=== PATIENT | female | born 1960 | race Caucasian/White ===

== ENCOUNTER 2025-06-19 08:19 | Inpatient (IN) | payer OTHER, MEDICARE, SELFPAY ==
--- NOTE | ~2025-06-19 | XR_ITS ---
EXAMINATION: XR CHEST CLINICAL INFORMATION: fall COMPARISON: None available. TECHNIQUE: Frontal view of the chest was obtained. FINDINGS: Pulmonary reticular pattern. No hyperinflation. No consolidation, pleural effusion or pneumothorax. Cardiomediastinal silhouette size is normal. S-shaped curvature of the thoracolumbar spine. Patient's large body habitus/obesity. XR/XR chest 1V IMPRESSION: Consider chronic interstitial lung disease without acute airspace disease. Electronically signed by: Jose Leone MD 06/19/2025 10:21 AM EDT
--- NOTE | ~2025-06-19 | XR_ITS ---
EXAMINATION: XR PELVIS CLINICAL INFORMATION: s/p left hip canelo - done in PACU COMPARISON: June 19, 2025 TECHNIQUE: Portable AP view of the pelvis. FINDINGS: There is a metallic left hip prosthesis well-seated in the osseous acetabulum and proximal femur with normal alignment. Skin johnna in the soft tissues of the left hip. Mild degenerative changes in the right coxofemoral joint and symphysis pubis. Sclerosis and the sacroiliac joints bilaterally. 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 XR/XR pelvis 1-2V IMPRESSION: Status post total left hip arthroplasty prosthesis. Satisfactory. Electronically signed by: Jose Leone MD 06/20/2025 09:25 AM EDT
--- NOTE | ~2025-06-19 | XR_ITS ---
EXAMINATION: XR HIP, LEFT CLINICAL INFORMATION: fall COMPARISON: None available. TECHNIQUE: AP and cross lateral view of the left hip. FINDINGS: There is transverse oriented cortical disruption through the femoral neck resulting in foreshortening and slight upward position of the intertrochanteric region of the femur. The femoral head is well seated in the acetabulum. Sclerosis and vacuum phenomenon at the left sacroiliac joint. XR/XR hip LT w PEL1V IMPRESSION: Acute displaced fracture, left femoral neck. Electronically signed by: Jose Leone MD 06/19/2025 10:22 AM EDT
[2025-06-19 08:28] VITALS: BP 174/103; BP 184/99; PULSE 103; PULSE 80; RESP 20; TEMP 36.6; O2SAT 100; O2SAT 96; BMI 27.4
[2025-06-19 08:30] LABS: Glucose, Whole Blood 455 mg/dL (60-115)
--- NOTE | 2025-06-19 08:42 | ECG_ITS ---
Test Reason : fall Blood Pressure : */* mmHG Vent. Rate : 95 BPM Atrial Rate : 95 BPM P-R Int : 162 ms QRS Dur : 80 ms QT Int : 352 ms P-R-T Axes : 52 -2 54 degrees QTcB Int : 442 ms Normal sinus rhythm Cannot rule out Inferior infarct , age undetermined Abnormal ECG When compared with ECG of 18-Nov-2006 11:50, No significant changes seen Referred By: Lois Stover Electronically Signed By: DAVEY QUACH MD
[2025-06-19 09:07] LABS: MANUAL DIFF FLAG NO
[2025-06-19 09:08] LABS: Hematocrit 40.0 % (37.0-47.0); Hemoglobin 14.1 g/dl (12.0-16.0); Imm Gran Abs Auto 0.05 X10*3/uL (0.00-0.03); Imm Gran Pct Auto 0.5 % (0.0-0.4); Lymphocytes Absolute Auto 0.6 X10*3/uL (1.2-4.9); Mean Corpuscular HGB Conc 35.3 g/dl (31.0-35.0); Mean Corpuscular Hemoglobin 29.0 pg (27.0-33.0); Mean Corpuscular Volume 82.1 fL (80.0-98.0); NRBC Abs Auto 0.000 X10*3/uL (0.0-0.012); NRBC Pct Auto 0.0 /100WBC (0.0-0.2); Platelet Count 254 X10*3/uL (160-400); Red Blood Count 4.87 X10*6/uL (4.20-5.50); White Blood Count 9.7 X10*3/uL (4.8-10.8)
[2025-06-19 09:13] LABS: INTERNATIONAL NORM RATIO 0.8 (0.9-1.1); Prothrombin Time 9.7 SEC (10.9-12.4)
[2025-06-19 09:26] LABS: Alanine Aminotransferase 21 U/L (0-31); Albumin Level 4.2 g/dL (3.5-5.0); Alkaline Phosphatase 182 U/L (39-117); Anion Gap 16 (12-20); Aspartate Amino Transferase 23 U/L (5-31); Blood Urea Nitrogen 17 mg/dL (9-16); Calcium 8.7 mg/dL (8.4-10.2); Carbon Dioxide 21 mmol/L (22-29); Chloride 102 mmol/L (96-108); Creatinine Clr Calc Pharmacy 72.4; Estimated Glomerular Filt Rate > 60; Lipase 42 U/L (8-78); Potassium 3.6 mmol/L (3.3-5.1); Sodium 135 mmol/L (135-145); Total Protein 7.4 g/dL (6.5-8.0)
--- NOTE | 2025-06-19 09:26 | ED.FALL ---
HPI - Fall General Chief Complaint: Fall Stated Complaint: L HIP PAIN,FALL,UNABLE TO BEAR WT, HIGH BS Time Seen by Provider: 06/19/25 08:33 Source: patient and EMS Mode of arrival: EMS Limitations: no limitations History of Present Illness ED Provider: DR. Stover HPI Narrative: 65-year-old female history of type 2 diabetes on metformin presented by EMS for evaluation after a mechanical fall. Patient was doing a morning walk in the street when she tripped on the broken pavement causing her to fall patient try to ease her fall landed on her left hip complaining of left hip pain, patient is unable to bear weight on her left hip, no head injury, no pain, patient declined using anticoagulation. Related Data Allergies Allergy/AdvReac Type Severity Reaction Status Date / Time amoxicillin Allergy Hives Verified 06/19/25 08:32 Review of Systems Review of Systems: All other systems are reviewed and are negative Constitutional: Reports as per HPI and Reports no additional constitutional complaints Eyes: Reports as per HPI and Reports no additional eye complaints Reports system reviewed and no additional complaints, except as documented Cardiovascular: Reports as per HPI and Reports no additional cardiovascular complaints Respiratory: Reports as per HPI and Reports no additional respiratory complaints Gastrointestinal: Reports as per HPI and Reports no additional gastrointestinal complaints Genitourinary: Reports no additional female genitourinary complaints Musculoskeletal: Reports no additional musculoskeletal complaints Skin/Breast: Reports system reviewed and no additional complaints, except as docu Psychiatric: Reports no additional psychiatric complaints Endocrine: Reports no additional endocrine complaints Hematologic/Lymphatic: Reports no additional hematologic/lymphatic complaints Allergic/Immunologic: Reports no additional allergic/immunologic complaints Reports system reviewed and no additional complaints, except as documented and Reports Abnormal speech present [facility] Social History Social History Advance Directives: No Advance Directives Information Provided: Yes Physical Exam Vital Signs: Vital Signs: Last Vital Signs Temp 97.9 F 06/19/25 08:28 Pulse 103 H 06/19/25 08:28 Resp 20 06/19/25 08:28 BP 174/103 H 06/19/25 08:28 Pulse Ox 100 06/19/25 08:28 O2 Del Method Room Air 06/19/25 08:28 BMI result Body Mass Index 27.4 Vital signs have been reviewed and appear to be correct. Blood pressure elevated. Heart rate normal. Respiratory rate normal. Temperature normal. Oxygen saturation normal. Appearance: Alert. Oriented X3. No acute distress. Head: Normal external exam. Normocephalic. Atraumatic. No Quach signs noted. No raccoon eyes noted Eyes: PERRLA. EOMI. Conjunctiva and sclera normal. Eyelids normal. ENT: TM's Normal. Pharynx normal. Uvula midline. Moist mucous membranes. No trismus noted. No drooling noted. No muffled voice noted. Neck: Normal inspection. Neck supple. FROM. No adenopathy. Thyroid Normal. No meningeal signs. No neck mass noted. CVS: Normal heart rate and rhythm. Heart sound normal. No murmurs noted. Pulses normal throughout. Respiratory: No respiratory distress. Painless inspiration. Breath sounds normal. No wheezes/rales/rhonchi noted. Chest nontender. No accessory muscle usage noted or decreased air movement noted. Abdomen: Soft and nontender. Bowel sounds normal in all 4 quadrants. No distention noted. No organomegaly noted. No visible injury noted. Back: No CVA tenderness. Full range of motion noted. Skin: Skin warm and dry. Normal skin color. Normal skin turgor. No rashes/lesions/lacerations noted. Extremities: Left hip: Tenderness over left hip with deformity, left lower extremity with shortening and external rotation, a strong left femoral artery pulsation with a good cap refill. Neuro: Oriented X 3. Cranial nerve exam: II-XII are grossly intact No motor deficit. No sensory deficit. Reflexes normal. Course Reevaluation(s) Reevaluation #1: 65-year-old female history of type 2 diabetes came in after sustained a mechanical fall causing her left hip fracture. Patient also sustained hyperglycemia with no DKA. 1. Left femur neck fracture, continue with pain control, consult Orthopedic. 2. Hyperglycemia with no DKA slight elevation of beta hydroxybutyric acid, improvement with IV fluids and IV insulin. Admission. Medications Administered Discontinued Medications Generic Name Dose Route Start Last Admin Trade Name Freq PRN Reason Stop Dose Admin Hydromorphone HCl 1 mg 06/19/25 09:27 06/19/25 09:53 Hydromorphone Hcl 1 Mg/Ml Syringe IVPUSH 06/19/25 09:28 1 mg ONCE ONE Administration Protocol Sodium Chloride 1,000 mls @ 999 mls/hr 06/19/25 08:42 06/19/25 09:07 Ns IV 06/19/25 09:42 999 mls/hr .Q1H1M ONE Administration Insulin Human Regular 5 unit 06/19/25 08:42 06/19/25 09:03 Insulin Regular, Human 100 Unit/Ml 10 Ml Vial IVPUSH 06/19/25 08:43 5 unit ONCE ONE Administration Medical Decision Making Differential Diagnosis Differential Diagnoses: The differential diagnosis associated with the presentation includes (DKA, hyperglycemia, electrolyte derangement, severe anemia, head injury, cervical spine injury, chest injury, abdominal injury, left hip fracture.) Admission/Observation Consideration of admission/observation: Escalation of care including admission/observation considered Consult Healthcare Provider Management of the patient was discussed with: Patient Transport Orderly (Marisa Young) Lab Data MDM Lab Attestation statement: I reviewed the patient's lab results. 06/19/25 09:02 06/19/25 09:02 Labs: Lab Results 06/19/25 06/19/25 06/19/25 Range/Units 08:27 09:02 09:57 WBC 9.7 (4.8-10.8) X10*3/uL RBC 4.87 (4.20-5.50) X10*6/uL Hgb 14.1 (12.0-16.0) g/dl Hct 40.0 (37.0-47.0) % MCV 82.1 (80.0-98.0) fL MCH 29.0 (27.0-33.0) pg MCHC 35.3 H (31.0-35.0) g/dl RDW 12.0 (11.0-16.0) % Plt Count 254 (160-400) X10*3/uL MPV 9.1 L (9.4-12.3) fL Immature Gran % (Auto) 0.5 H (0.0-0.4) % Neut % (Auto) 89.1 H (45-73) % Lymph % (Auto) 5.8 L (20-40) % [place] % (Auto) 4.2 (2-11) % Eos % (Auto) 0.1 (0-4) % Baso % (Auto) 0.3 (0-2) % Lymph # (Auto) 0.6 L (1.2-4.9) X10*3/uL [place] # (Auto) 0.4 (0.1-1.2) X10*3/uL Eos # (Auto) 0.0 (0.0-0.4) X10*3/uL Baso # (Auto) 0.0 (0.0-0.2) X10*3/uL Abs Immat Gran (auto) 0.05 H (0.00-0.03) X10*3/uL Absolute Neuts (auto) 8.6 H (2.0-8.3) x10*3/uL Absolute Nucleated RBC 0.000 (0.0-0.012) X10*3/uL Nucleated RBC % (auto) 0.0 (0.0-0.2) /100WBC PT 9.7 L (10.9-12.4) SEC INR 0.8 L (0.9-1.1) Sodium 135 (135-145) mmol/L Potassium 3.6 (3.3-5.1) mmol/L Chloride 102 (96-108) mmol/L Carbon Dioxide 21 L (22-29) mmol/L Anion Gap 16 (12-20) BUN 17 H (9-16) mg/dL Creatinine 0.79 (0.5-1.4) mg/dL Estim Creat Clear Calc 72.4 Estimated GFR > 60 POC Glucose 455 H* (60-115) mg/dL Random Glucose 460 H* (60-115) mg/dL Calcium 8.7 (8.4-10.2) mg/dL Total Bilirubin 0.7 (0.0-1.0) mg/dL Direct Bilirubin 0.2 (0.0-0.5) mg/dL AST 23 (5-31) U/L ALT 21 (0-31) U/L Alkaline Phosphatase 182 H (39-117) U/L Troponin I High Sens < 2.7 (<3.5-17.0) ng/L B-Natriuretic Peptide < 10 (<100) pg/mL Total Protein 7.4 (6.5-8.0) g/dL Albumin 4.2 (3.5-5.0) g/dL Lipase 42 (8-78) U/L Beta-Hydroxybutyrate 1.22 H (0.02-0.27) mmol/L Urine Color Yellow Urine Appearance Clear Urine pH 8.0 (5.0-9.0) Ur Specific [place] >= 1.030 H (1.005-1.025) Urine Protein Trace (Neg-Trace) mg/dL Urine Glucose (UA) >=1000 H (Negative) mg/dL Urine Ketones 40 (Negative) mg/dL Urine Blood Negative (Negative) Urine Nitrite Negative (Negative) Ur Leukocyte Esterase Negative (Negative) Urine RBC 0-2 (0-2) /HPF Urine WBC 0-5 (0-5) /HPF Ur Squamous Epith Cells 0-2 (0-2) /HPF Urine Bacteria None Seen (None Seen) Hyaline Casts 0-2 (0-2) /LPF Influenza Type A (PCR) NEGATIVE (Negative) Influenza Type B (PCR) NEGATIVE (Negative) RSV RNA Qual (PCR) NEGATIVE (Negative) SARS-CoV-2 RNA (RT-PCR) NEGATIVE (Negative) Blood Type Antibody Screen 06/19/25 06/19/25 Range/Units 10:21 11:00 WBC (4.8-10.8) X10*3/uL RBC (4.20-5.50) X10*6/uL Hgb (12.0-16.0) g/dl Hct (37.0-47.0) % MCV (80.0-98.0) fL MCH (27.0-33.0) pg MCHC (31.0-35.0) g/dl RDW (11.0-16.0) % Plt Count (160-400) X10*3/uL MPV (9.4-12.3) fL Immature Gran % (Auto) (0.0-0.4) % Neut % (Auto) (45-73) % Lymph % (Auto) (20-40) % [place] % (Auto) (2-11) % Eos % (Auto) (0-4) % Baso % (Auto) (0-2) % Lymph # (Auto) (1.2-4.9) X10*3/uL [place] # (Auto) (0.1-1.2) X10*3/uL Eos # (Auto) (0.0-0.4) X10*3/uL Baso # (Auto) (0.0-0.2) X10*3/uL Abs Immat Gran (auto) (0.00-0.03) X10*3/uL Absolute Neuts (auto) (2.0-8.3) x10*3/uL Absolute Nucleated RBC (0.0-0.012) X10*3/uL Nucleated RBC % (auto) (0.0-0.2) /100WBC PT (10.9-12.4) SEC INR (0.9-1.1) Sodium (135-145) mmol/L Potassium (3.3-5.1) mmol/L Chloride (96-108) mmol/L Carbon Dioxide (22-29) mmol/L Anion Gap (12-20) BUN (9-16) mg/dL Creatinine (0.5-1.4) mg/dL Estim Creat Clear Calc Estimated GFR POC Glucose 304 H (60-115) mg/dL Random Glucose (60-115) mg/dL Calcium (8.4-10.2) mg/dL Total Bilirubin (0.0-1.0) mg/dL Direct Bilirubin (0.0-0.5) mg/dL AST (5-31) U/L ALT (0-31) U/L Alkaline Phosphatase (39-117) U/L Troponin I High Sens (<3.5-17.0) ng/L B-Natriuretic Peptide (<100) pg/mL Total Protein (6.5-8.0) g/dL Albumin (3.5-5.0) g/dL Lipase (8-78) U/L Beta-Hydroxybutyrate (0.02-0.27) mmol/L Urine Color Urine Appearance Urine pH (5.0-9.0) Ur Specific [place] (1.005-1.025) Urine Protein (Neg-Trace) mg/dL Urine Glucose (UA) (Negative) mg/dL Urine Ketones (Negative) mg/dL Urine Blood (Negative) Urine Nitrite (Negative) Ur Leukocyte Esterase (Negative) Urine RBC (0-2) /HPF Urine WBC (0-5) /HPF Ur Squamous Epith Cells (0-2) /HPF Urine Bacteria (None Seen) Hyaline Casts (0-2) /LPF Influenza Type A (PCR) (Negative) Influenza Type B (PCR) (Negative) RSV RNA Qual (PCR) (Negative) SARS-CoV-2 RNA (RT-PCR) (Negative) Blood Type O Positive Antibody Screen NEGATIVE Independent Interpretation I performed an independent interpretation of an: Plain X-Ray (Chest: Pelvis: Left hip:Consider chronic interstitial lung disease without acute airspace disease/Acute displaced fracture, left femoral neck.) Radiology Impression Discussion of test interpretation with radiology: I have reviewed the radiologist's reading. Critical Care Time Critical Care Time Critical Care Time: Yes Total Critical Care Time: 40 Attestation: The patient was critically ill with a high probability of imminent or life-threatening deterioration. I spent greater than 30 minutes of discontinuous time evaluating the patient, delivering critical care at the bedside, discussing evaluating data with consultants. Critical care time does not include time spent performing separately billable procedures or teaching. Time spent performing critical care was 40 minutes. Discharge Plan Discharge Clinical Impression: Acute hyperglycemia, Closed fracture of left hip Patient Disposition: Admitted As Inpatient Print Language: [place]
[2025-06-19 09:30] LABS: B Type Natriuretic Peptide < 10 pg/mL (<100)
[2025-06-19 09:35] LABS: Troponin-I High Sensitivity < 2.7 ng/L (<3.5-17.0)
--- NOTE | 2025-06-19 09:44 | PC.NURSE ---
Leann Kim NP stated she can go to Nuc med without fluids and telemetry.
[2025-06-19 09:45] LABS: Resp Syncy Virus RNA Qual PCR NEGATIVE (Negative); SARS COV2 PCR INHOUSE NEGATIVE (Negative)
[2025-06-19 10:06] LABS: Appearance Urine Clear; Glucose Urine UA >=1000 mg/dL (Negative); PH 8.0 (5.0-9.0); Specific Gravity - Urine >= 1.030 (1.005-1.025); UMIC TRIGGER UACC YES
[2025-06-19 11:03] LABS: Glucose, Whole Blood 304 mg/dL (60-115)
--- NOTE | 2025-06-19 11:36 | PC.NURSE ---
Pt requesting to hold pain medication and metformin dose until nausea passes. Zofran administered, care ongoing.
[2025-06-19 11:47] VITALS: BP 128/69; PULSE 93; RESP 16; O2SAT 98
[2025-06-19 11:55] LABS: Glucose, Whole Blood 342 mg/dL (60-115)
[2025-06-19 12:00] VITALS: BP 128/69; PULSE 84; RESP 15; O2SAT 87
[2025-06-19 12:06] VITALS: O2SAT 100
--- NOTE | 2025-06-19 12:07 | PM.IMHP ---
History of Present Illness Date of Service: 06/19/25 Attending physician on admission: Denis Alva Chief Complaint: Left hip pain Winnie Bustamante is a 65 years old woman with significant past medical history significant for diabetes mellitus on diet presents to the emergency department after sustaining a mechanical fall this morning. She was able to stand up and walk. She denied any symptoms such as chest pain, shortness on breath, cough, abdominal pain or diarrhea. She because quite nauseous after receiving IV opiates. She has not history of heart heart or kidney disease, or strokes. She does not take blood thinners. She denied tobacco smoking, alcohol abuse illicit drug use. In the ED, she was found to have stable vital signs. She placed on supplemental oxygen after receiving IV opiates. Blood workup showed no leukocytosis. Hemoglobin is 14.1 and platelets 254. There are no significant electrolyte imbalances. CO2 is 21, BUN 17 and creatinine 0.79. Glucose was initially 455, last was 342. LFTs and lipase are basically unremarkable. Alk-phos is 182. BNP is less than 10. Beta hydroxybutyrate is 1.22. UA showed no evidence of UTI. Viral testing for COVID-19, influenza and RSV. Hip and pelvic x-ray showed acute displaced fracture of the left femoral neck. CXR showed chronic interstitial lung disease without acute airspace disease. ECG showed normal sinus rhythm, HR 95 bpm without obvious acute ischemic changes when compared with prior. ED tx: Zofran 4 mg IV, NS 1 L bolus, insulin R 5 units, Dilaudid 1 mg IV Review of Systems Review of Systems: All 12 systems were reviewed and normal except as noted in HPI. [facility] Medical History (Updated 06/19/25 @ 12:48 by Denis Alva MD) Type 2 diabetes mellitus Social History Smoked in Last 30 Days: No Advance Directives: No Advance Directives Information Provided: Yes Meds Allergies Allergy/AdvReac Type Severity Reaction Status Date / Time amoxicillin Allergy Hives Verified 06/19/25 08:32 Active Medications: Current Medications Calcium Carbonate (Calcium Carbonate 750 Mg Tab.Chew) 750 mg PO Q4H PRN PRN Reason: Heartburn Dextrose (Dextrose 50 % 25 Gm/50 Ml Syringe) 25 gm IVPUSH Q15M PRN; Protocol PRN Reason: per Hypoglycemia Standing Ord. Enoxaparin Sodium (Enoxaparin Sodium 40 Mg/0.4 Ml Syringe) 40 mg SUBCUT Q24H [facility] Glucose (Glucose Gel 15 Gm Gel..Gram.) 15 gm PO Q15M PRN; Protocol PRN Reason: per Hypoglycemia Standing Ord. Lactated Ringer's (Lr) 1,000 mls @ 125 mls/hr IVCONT .Q8H [facility] Stop: 06/19/25 19:59 Insulin Human Lispro (Insulin Lispro 100 Unit/Ml 3 Ml Vial) 0 unit SUBCUT Q6H PRN; Protocol PRN Reason: hyperglycemia Magnesium Hydroxide (Milk Of Magnesia 30 Ml Oral.Susp) 30 ml PO DAILY PRN PRN Reason: Constipation Melatonin (Melatonin 3 Mg Tablet) 6 mg PO BEDTIME PRN PRN Reason: Insomnia Ondansetron HCl (Ondansetron Hcl 4 Mg/2 Ml Vial) 4 mg IVPUSH Q6H PRN PRN Reason: Nausea and Vomiting Sodium Chloride (0.9 % Sodium Chloride Flush 3 Ml Syringe) 3 ml IVFLUSH QSHIFT [facility] Home Medications ?Medication ?Instructions ?Recorded ?Confirmed ?Last Taken ?Type No Known Home Meds 06/19/25 06/19/25 Unknown History Physical Exam Vital Signs and Narrative: Vital Signs: Last Vital Signs Temp 97.9 F 06/19/25 08:28 Pulse 84 06/19/25 12:00 Resp 15 06/19/25 12:00 BP 128/69 06/19/25 12:00 Pulse Ox 100 06/19/25 12:06 O2 Del Method Nasal Cannula 06/19/25 12:06 O2 Flow Rate 4 06/19/25 12:06 BMI result Body Mass Index 27.4 Constitutional - Awake and Alert. Looks uncomfortable due to pain. HEENT - PERRLA, EOMI Heart - S1S2, RRR, No edema Lungs- Normal lung expansion, Normal respiratory effort, No respiratory distress, CTA bilaterally Abdomen - NT / ND; +BS; No rebound or guarding Extremities - no calf tenderness bilaterally, no swelling. Left hip: Tenderness to palpation, limited ROM. Distal pulses 2+ bilaterally Musculoskeletal - Normal inspection, normal ROM Skin - Warm/Dry Neurological - Alert & oriented x3. No focal weakness grossly noted. Normal speech. Psychological - Appropriate affect Results Labs 06/19/25 09:02 06/19/25 09:02 Labs: Laboratory Results - last 24 hr 06/19/25 06/19/25 06/19/25 08:27 09:02 09:57 MCV 82.1 MCH 29.0 MCHC 35.3 H RDW 12.0 Plt Count 254 MPV 9.1 L Immature Gran % (Auto) 0.5 H Neut % (Auto) 89.1 H Lymph % (Auto) 5.8 L [place] % (Auto) 4.2 Eos % (Auto) 0.1 Baso % (Auto) 0.3 Lymph # (Auto) 0.6 L [place] # (Auto) 0.4 Eos # (Auto) 0.0 Baso # (Auto) 0.0 Abs Immat Gran (auto) 0.05 H Absolute Neuts (auto) 8.6 H Absolute Nucleated RBC 0.000 Nucleated RBC % (auto) 0.0 PT 9.7 L INR 0.8 L Anion Gap 16 Estim Creat Clear Calc 72.4 Estimated GFR > 60 POC Glucose 455 H* Random Glucose 460 H* Calcium 8.7 Total Bilirubin 0.7 Direct Bilirubin 0.2 AST 23 ALT 21 Alkaline Phosphatase 182 H B-Natriuretic Peptide < 10 Total Protein 7.4 Albumin 4.2 Lipase 42 Beta-Hydroxybutyrate 1.22 H Urine Color Yellow Urine Appearance Clear Urine pH 8.0 Ur Specific [place] >= 1.030 H Urine Protein Trace Urine Glucose (UA) >=1000 H Urine Ketones 40 Urine Blood Negative Urine Nitrite Negative Ur Leukocyte Esterase Negative Urine RBC 0-2 Urine WBC 0-5 Ur Squamous Epith Cells 0-2 Urine Bacteria None Seen Hyaline Casts 0-2 Influenza Type A (PCR) NEGATIVE Influenza Type B (PCR) NEGATIVE RSV RNA Qual (PCR) NEGATIVE SARS-CoV-2 RNA (RT-PCR) NEGATIVE Blood Type Antibody Screen 06/19/25 06/19/25 06/19/25 10:21 11:00 11:51 MCV MCH MCHC RDW Plt Count MPV Immature Gran % (Auto) Neut % (Auto) Lymph % (Auto) [place] % (Auto) Eos % (Auto) Baso % (Auto) Lymph # (Auto) [place] # (Auto) Eos # (Auto) Baso # (Auto) Abs Immat Gran (auto) Absolute Neuts (auto) Absolute Nucleated RBC Nucleated RBC % (auto) PT INR Anion Gap Estim Creat Clear Calc Estimated GFR POC Glucose 304 H 342 H Random Glucose Calcium Total Bilirubin Direct Bilirubin AST ALT Alkaline Phosphatase B-Natriuretic Peptide Total Protein Albumin Lipase Beta-Hydroxybutyrate Urine Color Urine Appearance Urine pH Ur Specific [place] Urine Protein Urine Glucose (UA) Urine Ketones Urine Blood Urine Nitrite Ur Leukocyte Esterase Urine RBC Urine WBC Ur Squamous Epith Cells Urine Bacteria Hyaline Casts Influenza Type A (PCR) Influenza Type B (PCR) RSV RNA Qual (PCR) SARS-CoV-2 RNA (RT-PCR) Blood Type O Positive Antibody Screen NEGATIVE Imaging Radiologist's Impressions: Impressions Hip/Pelvis X-Ray 06/19/25 09:06 IMPRESSION: Acute displaced fracture, left femoral neck. Electronically signed by: Jose Leone MD 06/19/2025 10:22 AM EDT RP Chest X-Ray 06/19/25 09:14 IMPRESSION: Consider chronic interstitial lung disease without acute airspace disease. Electronically signed by: Jose Leone MD 06/19/2025 10:21 AM EDT RP Assessment and Plan (1) Closed fracture of left hip: Qualifiers: Encounter type: initial encounter Qualified Code(s): S72.002A - Fracture of unspecified part of neck of left femur, initial encounter for closed fracture Status: Acute (2) Acute hyperglycemia: Status: Acute Plan Winnie Bustamante is a 65 y/o woman presents with: Left femoral neck fracture, closed. Treatment per Orthopedic surgery Service. CXR and EKG unremarkable. RCRI is O. overall preoperative risk is low. Type 2 diabetes mellitus with hyperglycemia. Metformin given by ED. BG checks. Diabetic diet. Insulin sliding scale. Hypoxia secondary to opiate. Continue supplemental O2. Code status: Full DVT prophylaxis: Lovenox Patient will need hospitalization for at least 2 midnights for left femoral neck fracture repair surgery. Quality Stroke Does the patient have a stroke diagnosis?: No VTE Prior VTE?: No VTE Risk Level:: Medical - moderate - high VTE Device Contraindication: Treatment Not Indicated VTE Drug Contraindication: N/A - Med Ordered
--- NOTE | 2025-06-19 12:47 | PHA.MEDREC ---
Addendum entered by Woody Gregg PharmD 06/19/25 13:09: reviewed Original Note: Pharmacy Consult ? Medication Reconciliation Pharmacy has completed the medication reconciliation. Patient states she is not on any medications.
[2025-06-19] MEDS: Lactated Ringers 1,000 ML 125 ML IVCONT (12:56)
[2025-06-19 13:20] LABS: Glucose, Whole Blood 356 mg/dL (60-115)
--- NOTE | 2025-06-19 14:01 | P.CONOP_ITS ---
History of Present Illness HPI Consult date: 06/19/25 Chief complaint: Left femur neck fracture Narrative: Ms. Bustamante is a 65 yo female with a PMH significant for DMII. She reports that she was walking and there was broken asphalt. She tripped over and fell landing on her left hip. She felt immediate pain and was unable to ambulate. She presented to the emergency department where x-rays were obtained and she was found to have a left hip femoral neck fracture. Her son is at bedside and reports that she has family to support her but she lives on a second floor apartment. She does not use any assistive devices to ambulate. She was admitted to the medicine service with orthopedic consult. Review of Systems 2 Review of Systems: Yes all other systems are reviewed and are negative [facility] Past Medical History Medical History (Updated 06/19/25 @ 12:48 by Denis Alva MD) Type 2 diabetes mellitus Social History Social History Smoked in Last 30 Days: No Advance Directives: No Advance Directives Information Provided: Yes Meds Allergies Allergy/AdvReac Type Severity Reaction Status Date / Time amoxicillin Allergy Hives Verified 06/19/25 08:32 Active Medications: Current Medications Calcium Carbonate (Calcium Carbonate 750 Mg Tab.Chew) 750 mg PO Q4H PRN PRN Reason: Heartburn Dextrose (Dextrose 50 % 25 Gm/50 Ml Syringe) 25 gm IVPUSH Q15M PRN; Protocol PRN Reason: per Hypoglycemia Standing Ord. Enoxaparin Sodium (Enoxaparin Sodium 40 Mg/0.4 Ml Syringe) 40 mg SUBCUT Q24H TIN Glucose (Glucose Gel 15 Gm Gel..Gram.) 15 gm PO Q15M PRN; Protocol PRN Reason: per Hypoglycemia Standing Ord. Lactated Ringer's (Lr) 1,000 mls @ 125 mls/hr IVCONT .Q8H TIN Stop: 06/19/25 19:59 Last Admin: 06/19/25 12:56 Dose: 125 mls/hr Acetaminophen (Ofirmev) 1,000 mg in 100 mls @ 400 mls/hr IV Q6H TIN Insulin Human Lispro (Insulin Lispro 100 Unit/Ml 3 Ml Vial) 0 unit SUBCUT Q6H PRN; Protocol PRN Reason: hyperglycemia Magnesium Hydroxide (Milk Of Magnesia 30 Ml Oral.Susp) 30 ml PO DAILY PRN PRN Reason: Constipation Melatonin (Melatonin 3 Mg Tablet) 6 mg PO BEDTIME PRN PRN Reason: Insomnia Ondansetron HCl (Ondansetron Hcl 4 Mg/2 Ml Vial) 4 mg IVPUSH Q6H PRN PRN Reason: Nausea and Vomiting Prochlorperazine Edisylate (Prochlorperazine Edisylate 10 Mg/2 Ml Vial) 5 mg IVPUSH Q6H PRN PRN Reason: Nausea and Vomiting Last Admin: 06/19/25 12:56 Dose: 5 mg Sodium Chloride (0.9 % Sodium Chloride Flush 3 Ml Syringe) 3 ml IVFLUSH [facility] Home Medications ?Medication ?Instructions ?Recorded ?Confirmed ?Last Taken ?Type No Known Home Meds 06/19/25 06/19/25 Un known History Physical Exam 2 Vital Signs: Vital Signs: Last Vital Signs Temp 97.9 F 06/19/25 08:28 Pulse 84 06/19/25 12:00 Resp 15 06/19/25 12:00 BP 128/69 06/19/25 12:00 Pulse Ox 100 06/19/25 12:06 O2 Del Method Nasal Cannula 06/19/25 12:06 O2 Flow Rate 4 06/19/25 12:06 BMI result Body Mass Index 27.4 Const: General: cooperative, healthy appearing and no acute distress Resp: Effort & Inspection: normal respiratory effort and able to speak in complete sentences Cardio: Rate: regular rate Peripheral pulses: Peripheral pulses 2+ throughout GI: Palpation (GI): Soft to palpation Skin: Lesions: no lesions Rashes: no rashes Extrem: Other: LLE is shortened. No external rotation noted. Able to dorsi/plantar flex. Sensation reportedly intact. Pedal pulse intact. Results Labs 06/19/25 09:02 06/19/25 09:02 Labs: Abnormal lab results 06/19/25 06/19/25 06/19/25 Range/Units 08:27 09:02 09:57 MCHC 35.3 H (31.0-35.0) g/dl MPV 9.1 L (9.4-12.3) fL Immature Gran % (Auto) 0.5 H (0.0-0.4) % Neut % (Auto) 89.1 H (45-73) % Lymph % (Auto) 5.8 L (20-40) % Lymph # (Auto) 0.6 L (1.2-4.9) X10*3/uL Abs Immat Gran (auto) 0.05 H (0.00-0.03) X10*3/uL Absolute Neuts (auto) 8.6 H (2.0-8.3) x10*3/uL PT 9.7 L (10.9-12.4) SEC INR 0.8 L (0.9-1.1) Carbon Dioxide 21 L (22-29) mmol/L BUN 17 H (9-16) mg/dL POC Glucose 455 H* (60-115) mg/dL Random Glucose 460 H* (60-115) mg/dL Alkaline Phosphatase 182 H (39-117) U/L Beta-Hydroxybutyrate 1.22 H (0.02-0.27) mmol/L Ur Specific [place] >= 1.030 H (1.005-1.025) Urine Glucose (UA) >=1000 H (Negative) mg/dL 06/19/25 06/19/25 06/19/25 Range/Units 11:00 11:51 13:16 MCHC (31.0-35.0) g/dl MPV (9.4-12.3) fL Immature Gran % (Auto) (0.0-0.4) % Neut % (Auto) (45-73) % Lymph % (Auto) (20-40) % Lymph # (Auto) (1.2-4.9) X10*3/uL Abs Immat Gran (auto) (0.00-0.03) X10*3/uL Absolute Neuts (auto) (2.0-8.3) x10*3/uL PT (10.9-12.4) SEC INR (0.9-1.1) Carbon Dioxide (22-29) mmol/L BUN (9-16) mg/dL POC Glucose 304 H 342 H 356 H* (60-115) mg/dL Random Glucose (60-115) mg/dL Alkaline Phosphatase (39-117) U/L Beta-Hydroxybutyrate (0.02-0.27) mmol/L Ur Specific [place] (1.005-1.025) Urine Glucose (UA) (Negative) mg/dL H & H 06/19/25 Range/Units 09:02 Hgb 14.1 (12.0-16.0) g/dl Hct 40.0 (37.0-47.0) % Coagulation 06/19/25 Range/Units 09:02 INR 0.8 L (0.9-1.1) All other labs normal. Assessment and Plan (1) Closed fracture of left hip: Qualifiers: Encounter type: initial encounter Qualified Code(s): S72.002A - Fracture of unspecified part of neck of left femur, initial encounter for closed fracture Status: Acute I discussed the case with Dr. Tyler and explained the extent of the injury to the patient and options available which include surgical intervention. I explained the procedure in detail along with the length of recovery and rehab course. I explained the risk, benefits and alternatives. Risk including, but not limited to infection, blood clots, bleeding, non union or malunion and nerve/tissue damage to surrounding areas. I answered all their questions and with their understanding they have consented to move forward with Operative Fixation of the left hip. The patient will be T&S, med clearance obtained and NPO after midnight. Procedures Date of Service Date of Service: 06/19/25
--- NOTE | 2025-06-19 14:26 | P.CONAN_ITS ---
Documented by User: Sindhu Qiu NP 06/19/25 15:06 HPI - Anesthesia Eval Consult details Narrative: 65 yr old female for Hemiarthroplasty Left hip No CP/SOB with moderate activity, usually 30 min walk daily No recent illness Type 2 DM: BG on arrival 400s; not on medication PCP was at [place], but not seen since 2020 per review of chart No H/O LIZ however O2 sats dipping into 80s while dosing off, placed on 3L O2 with sats high 90s Post op N/V after surgery 40 years ago) [facility] Active Problems Active Problems: All Active Problems Closed fracture of left hip (Acute) Acute hyperglycemia (Acute) Past Medical History Medical History (Updated 06/19/25 @ 12:48 by Denis Alva MD) Type 2 diabetes mellitus Social History Social History Comment: PACU 14 Patient Tobacco Use Status: Never used Tobacco Meds Allergies Allergy/AdvReac Type Severity Reaction Status Date / Time amoxicillin Allergy Hives Verified 06/19/25 08:32 Active Medications: Current Medications Calcium Carbonate (Calcium Carbonate 750 Mg Tab.Chew) 750 mg PO Q4H PRN PRN Reason: Heartburn Dextrose (Dextrose 50 % 25 Gm/50 Ml Syringe) 25 gm IVPUSH Q15M PRN; Protocol PRN Reason: per Hypoglycemia Standing Ord. Enoxaparin Sodium (Enoxaparin Sodium 40 Mg/0.4 Ml Syringe) 40 mg SUBCUT Q24H TIN Glucose (Glucose Gel 15 Gm Gel..Gram.) 15 gm PO Q15M PRN; Protocol PRN Reason: per Hypoglycemia Standing Ord. Lactated Ringer's (Lr) 1,000 mls @ 125 mls/hr IVCONT .Q8H TIN Stop: 06/19/25 19:59 Last Admin: 06/19/25 12:56 Dose: 125 mls/hr Acetaminophen (Ofirmev) 1,000 mg in 100 mls @ 400 mls/hr IV Q6H TIN Clindamycin Phosphate (Cleocin) 600 mg in 50 mls @ 100 mls/hr IV PREOP ONE Stop: 06/19/25 14:48 Insulin Human Lispro (Insulin Lispro 100 Unit/Ml 3 Ml Vial) 0 unit SUBCUT Q6H PRN; Protocol PRN Reason: hyperglycemia Magnesium Hydroxide (Milk Of Magnesia 30 Ml Oral.Susp) 30 ml PO DAILY PRN PRN Reason: Constipation Melatonin (Melatonin 3 Mg Tablet) 6 mg PO BEDTIME PRN PRN Reason: Insomnia Ondansetron HCl (Ondansetron Hcl 4 Mg/2 Ml Vial) 4 mg IVPUSH Q6H PRN PRN Reason: Nausea and Vomiting Prochlorperazine Edisylate (Prochlorperazine Edisylate 10 Mg/2 Ml Vial) 5 mg IVPUSH Q6H PRN PRN Reason: Nausea and Vomiting Last Admin: 06/19/25 12:56 Dose: 5 mg Sodium Chloride (0.9 % Sodium Chloride Flush 3 Ml Syringe) 3 ml IVFLUSH [facility] Home Medications ?Medication ?Instructions ?Recorded ?Confirmed ?Last Taken ?Type No Known Home Meds 06/19/25 06/19/25 Un known History Exam Height,Weight and Vital Signs: Height 5 ft 6 in Weight 77.111 kg Last Vital Signs Temp 97.9 F 06/19/25 08:28 Pulse 84 06/19/25 12:00 Resp 15 06/19/25 12:00 BP 128/69 06/19/25 12:00 Pulse Ox 100 06/19/25 12:06 O2 Del Method Nasal Cannula 06/19/25 12:06 O2 Flow Rate 4 06/19/25 12:06 Pertinent Lab Results Pertinent Lab Results: Laboratory Tests 06/19/25 06/19/25 06/19/25 08:27 09:02 09:57 WBC 9.7 RBC 4.87 Hgb 14.1 Hct 40.0 MCV 82.1 MCH 29.0 MCHC 35.3 H RDW 12.0 Plt Count 254 MPV 9.1 L Immature Gran % (Auto) 0.5 H Neut % (Auto) 89.1 H Lymph % (Auto) 5.8 L [place] % (Auto) 4.2 Eos % (Auto) 0.1 Baso % (Auto) 0.3 Lymph # (Auto) 0.6 L [place] # (Auto) 0.4 Eos # (Auto) 0.0 Baso # (Auto) 0.0 Abs Immat Gran (auto) 0.05 H Absolute Neuts (auto) 8.6 H Absolute Nucleated RBC 0.000 Nucleated RBC % (auto) 0.0 PT 9.7 L INR 0.8 L Sodium 135 Potassium 3.6 Chloride 102 Carbon Dioxide 21 L Anion Gap 16 BUN 17 H Creatinine 0.79 Estim Creat Clear Calc 72.4 Estimated GFR > 60 POC Glucose 455 H* Random Glucose 460 H* Calcium 8.7 Total Bilirubin 0.7 Direct Bilirubin 0.2 AST 23 ALT 21 Alkaline Phosphatase 182 H Troponin I High Sens < 2.7 B-Natriuretic Peptide < 10 Total Protein 7.4 Albumin 4.2 Lipase 42 Beta-Hydroxybutyrate 1.22 H Urine Color Yellow Urine Appearance Clear Urine pH 8.0 Ur Specific [place] >= 1.030 H Urine Protein Trace Urine Glucose (UA) >=1000 H Urine Ketones 40 Urine Blood Negative Urine Nitrite Negative Ur Leukocyte Esterase Negative Urine RBC 0-2 Urine WBC 0-5 Ur Squamous Epith Cells 0-2 Urine Bacteria None Seen Hyaline Casts 0-2 Influenza Type A (PCR) NEGATIVE Influenza Type B (PCR) NEGATIVE RSV RNA Qual (PCR) NEGATIVE SARS-CoV-2 RNA (RT-PCR) NEGATIVE Blood Type Antibody Screen 06/19/25 06/19/25 06/19/25 10:21 11:00 11:51 WBC RBC Hgb Hct MCV MCH MCHC RDW Plt Count MPV Immature Gran % (Auto) Neut % (Auto) Lymph % (Auto) [place] % (Auto) Eos % (Auto) Baso % (Auto) Lymph # (Auto) [place] # (Auto) Eos # (Auto) Baso # (Auto) Abs Immat Gran (auto) Absolute Neuts (auto) Absolute Nucleated RBC Nucleated RBC % (auto) PT INR Sodium Potassium Chloride Carbon Dioxide Anion Gap BUN Creatinine Estim Creat Clear Calc Estimated GFR POC Glucose 304 H 342 H Random Glucose Calcium Total Bilirubin Direct Bilirubin AST ALT Alkaline Phosphatase Troponin I High Sens B-Natriuretic Peptide Total Protein Albumin Lipase Beta-Hydroxybutyrate Urine Color Urine Appearance Urine pH Ur Specific [place] Urine Protein Urine Glucose (UA) Urine Ketones Urine Blood Urine Nitrite Ur Leukocyte Esterase Urine RBC Urine WBC Ur Squamous Epith Cells Urine Bacteria Hyaline Casts Influenza Type A (PCR) Influenza Type B (PCR) RSV RNA Qual (PCR) SARS-CoV-2 RNA (RT-PCR) Blood Type O Positive Antibody Screen NEGATIVE 06/19/25 13:16 WBC RBC Hgb Hct MCV MCH MCHC RDW Plt Count MPV Immature Gran % (Auto) Neut % (Auto) Lymph % (Auto) [place] % (Auto) Eos % (Auto) Baso % (Auto) Lymph # (Auto) [place] # (Auto) Eos # (Auto) Baso # (Auto) Abs Immat Gran (auto) Absolute Neuts (auto) Absolute Nucleated RBC Nucleated RBC % (auto) PT INR Sodium Potassium Chloride Carbon Dioxide Anion Gap BUN Creatinine Estim Creat Clear Calc Estimated GFR POC Glucose 356 H* Random Glucose Calcium Total Bilirubin Direct Bilirubin AST ALT Alkaline Phosphatase Troponin I High Sens B-Natriuretic Peptide Total Protein Albumin Lipase Beta-Hydroxybutyrate Urine Color Urine Appearance Urine pH Ur Specific [place] Urine Protein Urine Glucose (UA) Urine Ketones Urine Blood Urine Nitrite Ur Leukocyte Esterase Urine RBC Urine WBC Ur Squamous Epith Cells Urine Bacteria Hyaline Casts Influenza Type A (PCR) Influenza Type B (PCR) RSV RNA Qual (PCR) SARS-CoV-2 RNA (RT-PCR) Blood Type Antibody Screen Narrative Narrative: EKG 06/19/25 Vent. Rate : 95 BPM Atrial Rate : 95 BPM P-R Int : 162 ms QRS Dur : 80 ms QT Int : 352 ms P-R-T Axes : 52 -2 54 degrees QTcB Int : 442 ms Normal sinus rhythm Cannot rule out Inferior infarct , age undetermined Abnormal ECG When compared with ECG of 18-Nov-2006 11:50, No significant changes seen Documented by User: Alex Clarke MD 06/20/25 07:43 [facility] Past Medical History Medical History (Updated 06/19/25 @ 12:48 by Denis Alva MD) Type 2 diabetes mellitus Family History Family history of problems with anesthesia: No Surgical History History of Problems with Anesthesia: Yes (PONV 40 years ago.) Social History Social History Comment: PACU 14 Patient Tobacco Use Status: Never used Tobacco Meds Allergies Allergy/AdvReac Type Severity Reaction Status Date / Time amoxicillin Allergy Hives Verified 06/19/25 08:32 Home Medications ?Medication ?Instructions ?Recorded ?Confirmed ?Last Taken ?Type No Known Home Meds 06/19/25 06/19/25 Un known History Exam Airway Mallampati Class: II TM Dist: >3cm Neck ROM: Full Loose/Missing/Broken Teeth: No Heart: ok Lungs: ok. Desaturates w pain meds/sedation. Assessment and Plan Assessment Anesthesia Assessment: Anesthesia Plan Discussed and Chart Reviewed Final Anesthetic Review Family History of Problems with Anesthesia: No History of Problems with Anesthesia: Yes (PONV 40 years ago.) NPO: Yes ASA Class: III Final Preanesthetic Review: No Changes in Pt Med Stat, Meds/Allgs Chart Reviewed, Consent Obtained/Reviewed and Anes Risks/Benef Reviewed Patient Risk: Intermediate Procedure Risk: Low Anesthetic Plan Anesthetic Plan: GA and Agree w/ Assess. and Plan Disposition: Standard PACU
[2025-06-19] MEDS: Insulin Glargine,Hum.rec.anlog 100 UNIT/ML 10 ML VIAL 15 UNIT SUBCUT (17:15)
[2025-06-19 17:23] LABS: Glucose, Whole Blood 330 mg/dL (60-115)
[2025-06-19 18:20] LABS: Glucose, Whole Blood 294 mg/dL (60-115)
[2025-06-19 20:13] VITALS: BP 123/65; PULSE 100; RESP 20; TEMP 36.7; O2SAT 99
[2025-06-20] VITALS (15 sets, daily range): BP systolic 109–159; BP diastolic 66–82; PULSE 70–99; RESP 12–17; TEMP 36.1–37; O2SAT 93–100
--- NOTE | 2025-06-20 | PC.NURSE ---
Report received and care assumed at 2300. Pt initially noted/found to be asleep in her stretcher with eyes closed, respirations even and unlabored with O2 via NC in place. This RN to bedside to tend to alarming IV Pump to find the pt awake and alert, offering no complaints and/or needs. Upon assessment pt was found to have 7/10 back pain that she believes is secondary to positioning and the mattress; RN offered to look for a hospital bed to assist with comfort for the night to which she agreed. Plan is for POC recheck at and/or around 0010 per q6 hour order. The pt will be NPO at 0000 for potential surgery in the AM. Call yanez in place and RN will continue to assess
[2025-06-20 00:14] LABS: Glucose, Whole Blood 223 mg/dL (60-115)
--- NOTE | 2025-06-20 06:06 | PC.NURSE ---
nurse to nurse report provided to jessie RYAN via phone. Plan is for the pt to be brought over to PACU at 0630
[2025-06-20 06:16] LABS: Hematocrit 38.7 % (37.0-47.0); Hemoglobin 13.0 g/dl (12.0-16.0); Mean Corpuscular HGB Conc 33.6 g/dl (31.0-35.0); Mean Corpuscular Hemoglobin 28.6 pg (27.0-33.0); Mean Corpuscular Volume 85.1 fL (80.0-98.0); NRBC Abs Auto 0.000 X10*3/uL (0.0-0.012); NRBC Pct Auto 0.0 /100WBC (0.0-0.2); Platelet Count 235 X10*3/uL (160-400); Red Blood Count 4.55 X10*6/uL (4.20-5.50); White Blood Count 7.6 X10*3/uL (4.8-10.8)
[2025-06-20 06:19] LABS: Anion Gap 12 (12-20); Blood Urea Nitrogen 9 mg/dL (9-16); Calcium 8.2 mg/dL (8.4-10.2); Carbon Dioxide 24 mmol/L (22-29); Chloride 107 mmol/L (96-108); Creatinine Clr Calc Pharmacy 95.4; Estimated Glomerular Filt Rate > 60; Potassium 3.5 mmol/L (3.3-5.1); Sodium 139 mmol/L (135-145)
[2025-06-20 06:44] LABS: Glucose, Whole Blood 194 mg/dL (60-115)
--- NOTE | 2025-06-20 07:20 | MHC.SHP ---
Pre-Procedural Eval Section A - 24 Hr Update-Section A only Date of Service: 06/20/25 The patient is an INPATIENT: Yes Changes since office visit: No Cold of Flu in the past 2 weeks, No New Medical Problems, No Changes in Medication and No Patient answered all questions The patient has been examined within 24 hours of the surgical procedure. The History & Physical has been completed within 30 days and I have reviewed it.: Yes Section B - Complete if H&P > 30 days Chief Complaint: Left femur neck fracture Allergies: Allergies Allergy/AdvReac Type Severity Reaction Status Date / Time amoxicillin Allergy Hives Verified 06/19/25 08:32 Plan I have reviewed the history and physical and performed a pertinent physical examination on my patient. No changes have occurred unless specified. Time Spent With Patient Time: Total time managing care of this patient today ____ minutes.
[2025-06-20 07:24] LABS: Hemoglobin A1C 614.5214 umol/L; Total Hemoglobin (HGBA1C) 4418.1569 umol/L
--- NOTE | 2025-06-20 09:23 | PM.OP ---
Brief Operative Note Date of Service: 06/20/25 Pre-op diagnosis: Left fem neck fx Post-op diagnosis: same Procedure: Left hip canelo Implants: Wendell Accolade#[id number] with - bipolar Surgeon: Alberto Tyler MD Anesthesia: GETA and local Was an Application Penetration Tester used for this Procedure?: Yes Application Penetration Tester: Marisa Young Estimated blood loss (mL): 150 IV fluids (mL): 750 Pathology: other Condition: stable Disposition: PACU
[2025-06-20] MEDS: Lactated Ringers 1,000 ML 100 ML IVCONT (11:38)
[2025-06-20 11:59] LABS: Glucose, Whole Blood 264 mg/dL (60-115)
[2025-06-20] MEDS: 0.9 % Sodium Chloride Flush 3 ML SYRINGE IVFLUSH (14:42)
[2025-06-20 16:21] LABS: Glucose, Whole Blood 333 mg/dL (60-115)
--- NOTE | 2025-06-20 16:29 | MHC.CM.PN ---
PT REPORTS SHE LIVES ALONE AND HER SON AND HIS FAMILY LIVE DOWNSTAIRS SHE IS INDEPENDENT, HAS NO DME AND NO SERVICES SHE WILL COMPLETE A HCP DURING ADMISSION SHE DOES NOT HAVE A PCP AND STATES SHE USES URGENT CARE PER HER INSURANCE CO INSTRUCTIONS SHE HAS MEDICARE A, BUT DOES NOT HAVE THE CARD WITH HER IMM DELIVERED DCP STR PENDING PT EVAL PT HOPES TO GO TO ACUTE REHAB, BUT UNDERSTANDS IT MAY BE STR SHE IS CONSIDERING PREFERENCES
--- NOTE | 2025-06-20 17:44 | P.PNIM_ITS ---
Subjective Subjective Date of Service: 06/20/25 Interval History: hip fx dm with hyperglycemia Review of Systems has pain but tolerable no new c/o Review of Systems: Yes all other systems are reviewed and are negative Physical Exam 2 Exam: Exam: Appearance: Alert.? Oriented X3.? cvs: rrr, [id number] . res: clear to auscultation ,no rhonchii or wheezing abd: no rebound or guarding ,nt, bs present. ext pulses present , no cyanosis. MS: left hip mild pain, no swelling or erythema neuro: axo3 , nonfocal. Vital Signs: Vital Signs: Last Vital Signs Temp 97.4 F 06/20/25 15:42 Pulse 89 06/20/25 15:42 Resp 16 06/20/25 15:42 BP 139/75 06/20/25 15:42 Pulse Ox 97 06/20/25 15:42 O2 Del Method Nasal Cannula 06/20/25 15:42 O2 Flow Rate 2 06/20/25 15:42 BMI result Body Mass Index 27.4 Objective Data Active Medications Aspirin (Aspirin 325 Mg Tablet) 325 mg PO BID [facility] Calcium Carbonate (Calcium Carbonate 750 Mg Tab.Chew) 750 mg PO Q4H PRN PRN Reason: Heartburn Dextrose (Dextrose 50 % 25 Gm/50 Ml Syringe) 25 gm IVPUSH Q15M PRN; Protocol PRN Reason: per Hypoglycemia Standing Ord. Dextrose (Dextrose 50 % 25 Gm/50 Ml Syringe) 25 gm IVPUSH Q15M PRN; Protocol PRN Reason: per Hypoglycemia Standing Ord. Enoxaparin Sodium (Enoxaparin Sodium 40 Mg/0.4 Ml Syringe) 40 mg SUBCUT Q24H [facility] Last Admin: 06/20/25 12:44 Dose: 40 mg Documented By: HAKEEM Glucose (Glucose Gel 15 Gm Gel..Gram.) 15 gm PO Q15M PRN; Protocol PRN Reason: per Hypoglycemia Standing Ord. Glucose (Glucose Gel 15 Gm Gel..Gram.) 15 gm PO Q15M PRN; Protocol PRN Reason: per Hypoglycemia Standing Ord. Acetaminophen (Ofirmev) 1,000 mg in 100 mls @ 400 mls/hr IV Q6H [facility] Last Infusion: 06/20/25 11:58 Dose: Infused Documented By: HAKEEM Insulin Glargine (Insulin Glargine,Hum.Rec.Anlog 100 Unit/Ml 10 Ml Vial) 15 unit SUBCUT BEDTIME [facility] Last Admin: 06/19/25 17:15 Dose: 15 unit Documented By: MARKOS Insulin Human Lispro (Insulin Lispro 100 Unit/Ml 3 Ml Vial) 0 unit SUBCUT Q6H PRN; Protocol PRN Reason: hyperglycemia Last Admin: 06/20/25 01:06 Dose: 4 unit Documented By: CHIP Insulin Human Lispro (Insulin Lispro 100 Unit/Ml 3 Ml Vial) 0 unit SUBCUT QIDACHS [facility]; Protocol Magnesium Hydroxide (Milk Of Magnesia 30 Ml Oral.Susp) 30 ml PO DAILY PRN PRN Reason: Constipation Melatonin (Melatonin 3 Mg Tablet) 6 mg PO BEDTIME PRN PRN Reason: Insomnia Naloxone HCl (Naloxone Hcl 0.4 Mg/Ml Vial) 0.04 mg IVPUSH Q5M PRN PRN Reason: Excessive sedation or RR < 8 Ondansetron HCl (Ondansetron Hcl 4 Mg/2 Ml Vial) 4 mg IVPUSH Q6H PRN PRN Reason: Nausea and Vomiting Last Admin: 06/20/25 11:39 Dose: 4 mg Documented By: HAKEEM Prochlorperazine Edisylate (Prochlorperazine Edisylate 10 Mg/2 Ml Vial) 5 mg IVPUSH Q6H PRN PRN Reason: Nausea and Vomiting Last Admin: 06/19/25 12:56 Dose: 5 mg Documented By: MARKOS Sodium Chloride (0.9 % Sodium Chloride Flush 3 Ml Syringe) 3 ml IVFLUSH [facility] Last Admin: 06/20/25 14:42 Dose: 3 ml Documented By: HAKEEM Labs 06/20/25 04:59 06/20/25 04:59 Labs: Laboratory Results - last 24 hr 06/19/25 06/20/25 06/20/25 18:10 00:10 04:59 MCV 85.1 MCH 28.6 MCHC 33.6 RDW 12.4 Plt Count 235 MPV 9.6 Absolute Nucleated RBC 0.000 Nucleated RBC % (auto) 0.0 Anion Gap 12 Estim Creat Clear Calc 95.4 Estimated GFR > 60 POC Glucose 294 H 223 H Random Glucose 175 H Estimat Average Glucose TNP Hemoglobin A1c % > 14.0 H Calcium 8.2 L 06/20/25 06/20/25 06/20/25 06:41 11:55 16:13 MCV MCH MCHC RDW Plt Count MPV Absolute Nucleated RBC Nucleated RBC % (auto) Anion Gap Estim Creat Clear Calc Estimated GFR POC Glucose 194 H 264 H 333 H Random Glucose Estimat Average Glucose Hemoglobin A1c % Calcium Assessment and Plan (1) Acute hyperglycemia: Status: Acute (2) Closed fracture of left hip: Status: Acute Assessment and Plan: 65 y/o woman presents with: Left femoral neck fracture, closed. Treatment per Orthopedic surgery Service. CXR and EKG unremarkable. s/p Left hip canelo day1 pain managemnt Type 2 diabetes mellitus with hyperglycemia. BG checks. Diabetic diet. on lantus /Insulin sliding scale. Hypoxia secondary to opiate:taper supplemental O2. Code status: Full DVT prophylaxis:[facility] devices ongoing need for stay: for left femoral neck fracture repair surgery-pain control/ fs monitering . Quality Stroke Does the patient have a stroke diagnosis?: No VTE Prior VTE?: No VTE Risk Level:: Medical - moderate - high VTE Device Contraindication: Treatment Not Indicated VTE Drug Contraindication: N/A - Med Ordered
[2025-06-20 20:15] LABS: Glucose, Whole Blood 334 mg/dL (60-115)
[2025-06-20] MEDS: Insulin Glargine,Hum.rec.anlog 100 UNIT/ML 10 ML VIAL 15 UNIT SUBCUT (20:56)
[2025-06-21] MEDS: 0.9 % Sodium Chloride Flush 3 ML SYRINGE IVFLUSH ×4 (00:19→21:23)
[2025-06-21 03:16] VITALS: BP 136/65; PULSE 98; RESP 16; TEMP 36.3; O2SAT 95
--- NOTE | 2025-06-21 06:57 | PC.NURSE ---
Ice was applied this am tylenol dose exceeded max.not able to give. pt stated her pain is ok for now, report given to day RN
[2025-06-21 07:19] VITALS: BP 153/79; PULSE 100; RESP 18; TEMP 36; O2SAT 100
[2025-06-21 07:29] LABS: Glucose, Whole Blood 211 mg/dL (60-115)
--- NOTE | 2025-06-21 08:21 | HO.POSTANES ---
Post Anesthesia Evaluation Post Anesthesia Evaluation Date of Service: 06/21/25 Vital Signs: Vital Signs Temp Pulse Resp BP Pulse Ox O2 Del Method 06/21/25 07:19 96.8 F 100 18 153/79 H 100 Room Air 06/21/25 03:16 97.3 F 98 16 136/65 95 Room Air Anesthesia: General Mental Status: Awake Pain Control: Satisfactory Nausea/Vomiting: None Hydration: Adequate Anesthesia-Related Issues: No Anes. Related Issues
--- NOTE | 2025-06-21 08:29 | P.OP_ITS ---
Operative Note Operative Note Date of Service: 06/20/25 Narrative: Date of Service: 06/20/25 Pre-op diagnosis: Left fem neck fx Post-op diagnosis: same Procedure: Left hip canelo Implants: [place] Accolade#[phone] with -3/49 bipolar Surgeon: Alberto Tyler MD Anesthesia: GETA and local Was an State Epidemiologist used for this Procedure?: Yes State Epidemiologist: Marisa Young Estimated blood loss (mL): 150 IV fluids (mL): 750 Pathology: other Condition: stable Disposition: PACU Procedure in detail: Patient was brought to the operative room placed in the lateral decubitus position. All bony prominences were well padded and the was prepped and draped in standard sterile fashion. IV antibiotics per weight were administered and a time-out was called to identify proper site proper procedure proper surgeon. Radiographs were available and confirmed. I began by making a curvilinear incision over the posterolateral aspect of the greater trochanter. Dissection was taken down to the tensor fascia which was incised in line with the incision and a Charnley retractor was placed. The hip was internally rotated and the external rotators were identified. All vessels in the area were cauterized and a full-thickness capsular/external rotator layer was developed in a hockey-stick fashion starting just distal to the piriformis. This layer was tagged and the displaced femoral neck fracture was identified. Clean-up cuts was performed while protecting the posterolateral soft tissues and the head was removed and measured (49 mm) on the back table. I then copiously irrigated the acetabulum and removed all bony fragments. Once this was done I used a cookie cutter to lateralize and a Charnley awl to identify the canal and then sequentially broached up to a 127 deg #6. I then trialed with a standard head and a bipolar component matching the femoral head size. I was most satisfied with the range of motion and stability and length using a -3/49 construct. Therefore I removed all instrumentation and copiously irrigated. I then placed my final femoral implant and then re-trialed. I was satisfied with the -3/49 implant. My final bipolar components were then placed. I closed the capsular layer with FiberWire and irrigated copiously. I performed a layered closure with johnna on skin. The patient was placed in sterile dressing extubated brought to recovery room in stable condition there were no known complications.
[2025-06-21 08:49] LABS: MANUAL DIFF FLAG NO
--- NOTE | 2025-06-21 08:59 | PM.PNORT ---
Subjective Subjective Date of Service: 06/21/25 Interval history: POD1 s/p left hip canelo Patient is working with occupational therapy to move from laying to sitting on EOB No overnight events Pain is managed No additional complaints Physical Exam Vital Signs: Vital Signs: Last Vital Signs Temp 96.8 F 06/21/25 07:19 Pulse 100 06/21/25 07:19 Resp 18 06/21/25 07:19 BP 153/79 H 06/21/25 07:19 Pulse Ox 100 06/21/25 07:19 O2 Del Method Room Air 06/21/25 07:19 O2 Flow Rate 2 06/20/25 15:42 BMI result Body Mass Index 27.4 Const: General: cooperative, healthy appearing and no acute distress Resp: Effort & Inspection: normal respiratory effort and able to speak in complete sentences Extrem: Other: left hip dressing is c/d/i. Able to dorsi/plantar flex. Calf is supple and nontender. Sensation intact. Pedal pulse intact. Psych: Appearance: grossly normal Mental Status: mental status grossly normal Attitude: cooperative Procedures Date of Service Date of Service: 06/21/25 Progress Note: A&P Assessment and plan (1) Closed fracture of left hip: Status: Acute (2) Status post hemiarthroplasty of left hip: Status: Acute Plan Continue pain mgmnt Begin ASA for dvt ppx begin PT/OT for left hip canelo - WBAT, posterior precautions Dispo planning- PT/OT, pain mgmnt, rehab placement Time Spent With Patient Time: Total time managing care of this patient today ____ minutes. Quality Stroke Does the patient have a stroke diagnosis?: No VTE Prior VTE?: No VTE Risk Level:: Medical - moderate - high VTE Device Contraindication: Treatment Not Indicated VTE Drug Contraindication: N/A - Med Ordered
[2025-06-21 09:52] LABS: Hematocrit 36.7 % (37.0-47.0); Hemoglobin 12.4 g/dl (12.0-16.0); Imm Gran Abs Auto 0.02 X10*3/uL (0.00-0.03); Imm Gran Pct Auto 0.3 % (0.0-0.4); Lymphocytes Absolute Auto 0.9 X10*3/uL (1.2-4.9); Mean Corpuscular HGB Conc 33.8 g/dl (31.0-35.0); Mean Corpuscular Hemoglobin 29.1 pg (27.0-33.0); Mean Corpuscular Volume 86.2 fL (80.0-98.0); NRBC Abs Auto 0.000 X10*3/uL (0.0-0.012); NRBC Pct Auto 0.0 /100WBC (0.0-0.2); Platelet Count 205 X10*3/uL (160-400); Red Blood Count 4.26 X10*6/uL (4.20-5.50); White Blood Count 6.8 X10*3/uL (4.8-10.8)
[2025-06-21 10:18] LABS: Anion Gap 14 (12-20); Blood Urea Nitrogen 13 mg/dL (9-16); Calcium 8.4 mg/dL (8.4-10.2); Carbon Dioxide 23 mmol/L (22-29); Chloride 104 mmol/L (96-108); Creatinine Clr Calc Pharmacy 86.7; Estimated Glomerular Filt Rate > 60; Potassium 3.6 mmol/L (3.3-5.1); Sodium 137 mmol/L (135-145)
--- NOTE | 2025-06-21 11:11 | MHC.CM.PN ---
Addendum entered by Britt Norwood 06/21/25 16:30: [facility] has requested a Peer to Peer for authorization of Acute Rehab. The Peer 2 Peer is scheduled for Tuesday 11am-1pm. Original Note: S/P L Femur FX and surgical repair. PT and OT evaluations recommend Acute Rehab. [facility] bed [facility]. The patient has accepted the bed offer. The facility has been notified. The [facility] is initiating the insurance authorization process. [facility] pending insurance authorization.
[2025-06-21 11:43] LABS: Glucose, Whole Blood 262 mg/dL (60-115)
--- NOTE | 2025-06-21 15:49 | HO.PM.IMPN ---
Subjective Subjective Date of Service: 06/21/25 Interval History: hip fx dm with hyperglycemia Review of Systems pain similar to yesterday denies any new c/o Review of Systems: Yes all other systems are reviewed and are negative Physical Exam Exam: Exam: Appearance: Alert.? Oriented X3.? cvs: [id number], [id number] . res: clear to auscultation ,no rhonchii or wheezing abd: no rebound or guarding ,nt, bs present. ext pulses present , no cyanosis. MS: left hip mild pain, no swelling or erythema neuro: axo3 , nonfocal. Vital Signs: Vital Signs: Last Vital Signs Temp 96.8 F 06/21/25 07:19 Pulse 100 06/21/25 07:19 Resp 18 06/21/25 07:19 BP 153/79 H 06/21/25 07:19 Pulse Ox 100 06/21/25 07:19 O2 Del Method Room Air 06/21/25 07:19 O2 Flow Rate 2 06/20/25 15:42 BMI result Body Mass Index 27.4 Objective Data Active Medications Acetaminophen (Acetaminophen 325 Mg Tablet) 975 mg PO Q6H PRN PRN Reason: Pain, Mild (Pain Scale 1-3) Last Admin: 06/21/25 10:23 Dose: 975 mg Documented By: HAKEEM Aspirin (Aspirin 325 Mg Tablet) 325 mg PO BID [facility] Last Admin: 06/21/25 07:46 Dose: 325 mg Documented By: HAKEEM Calcium Carbonate (Calcium Carbonate 750 Mg Tab.Chew) 750 mg PO Q4H PRN PRN Reason: Heartburn Dextrose (Dextrose 50 % 25 Gm/50 Ml Syringe) 25 gm IVPUSH Q15M PRN; Protocol PRN Reason: per Hypoglycemia Standing Ord. Dextrose (Dextrose 50 % 25 Gm/50 Ml Syringe) 25 gm IVPUSH Q15M PRN; Protocol PRN Reason: per Hypoglycemia Standing Ord. Enoxaparin Sodium (Enoxaparin Sodium 40 Mg/0.4 Ml Syringe) 40 mg SUBCUT Q24H [facility] Last Admin: 06/21/25 11:48 Dose: 40 mg Documented By: HAKEEM Glucose (Glucose Gel 15 Gm Gel..Gram.) 15 gm PO Q15M PRN; Protocol PRN Reason: per Hypoglycemia Standing Ord. Glucose (Glucose Gel 15 Gm Gel..Gram.) 15 gm PO Q15M PRN; Protocol PRN Reason: per Hypoglycemia Standing Ord. Insulin Glargine (Insulin Glargine,Hum.Rec.Anlog 100 Unit/Ml 10 Ml Vial) 18 unit SUBCUT BEDTIME [facility] Insulin Human Lispro (Insulin Lispro 100 Unit/Ml 3 Ml Vial) 0 unit SUBCUT Q6H PRN; Protocol PRN Reason: hyperglycemia Last Admin: 06/20/25 01:06 Dose: 4 unit Documented By: CHIP Insulin Human Lispro (Insulin Lispro 100 Unit/Ml 3 Ml Vial) 0 unit SUBCUT QIDACHS [facility]; Protocol Last Admin: 06/21/25 11:49 Dose: 6 unit Documented By: HAKEEM Magnesium Hydroxide (Milk Of Magnesia 30 Ml Oral.Susp) 30 ml PO DAILY PRN PRN Reason: Constipation Melatonin (Melatonin 3 Mg Tablet) 6 mg PO BEDTIME PRN PRN Reason: Insomnia Naloxone HCl (Naloxone Hcl 0.4 Mg/Ml Vial) 0.04 mg IVPUSH Q5M PRN PRN Reason: Excessive sedation or RR < 8 Ondansetron HCl (Ondansetron Hcl 4 Mg/2 Ml Vial) 4 mg IVPUSH Q6H PRN PRN Reason: Nausea and Vomiting Last Admin: 06/20/25 11:39 Dose: 4 mg Documented By: HAKEEM Prochlorperazine Edisylate (Prochlorperazine Edisylate 10 Mg/2 Ml Vial) 5 mg IVPUSH Q6H PRN PRN Reason: Nausea and Vomiting Last Admin: 06/19/25 12:56 Dose: 5 mg Documented By: MARKOS Sodium Chloride (0.9 % Sodium Chloride Flush 3 Ml Syringe) 3 ml IVFLUSH QSHIFT [facility] Last Admin: 06/21/25 07:47 Dose: 3 ml Documented By: HAKEEM Tramadol HCl (Tramadol Hcl 50 Mg Tablet) 25 mg PO Q6H PRN PRN Reason: Pain, Severe (Pain Scale 7-10) Labs 06/21/25 08:37 06/21/25 08:37 Labs: Laboratory Results - last 24 hr 06/20/25 06/20/25 06/21/25 16:13 20:08 07:18 MCV MCH MCHC RDW Plt Count MPV Immature Gran % (Auto) Neut % (Auto) Lymph % (Auto) [place] % (Auto) Eos % (Auto) Baso % (Auto) Lymph # (Auto) [place] # (Auto) Eos # (Auto) Baso # (Auto) Abs Immat Gran (auto) Absolute Neuts (auto) Absolute Nucleated RBC Nucleated RBC % (auto) Anion Gap Estim Creat Clear Calc Estimated GFR POC Glucose 333 H 334 H 211 H Fasting Glucose Calcium 06/21/25 06/21/25 08:37 11:39 MCV 86.2 MCH 29.1 MCHC 33.8 RDW 12.3 Plt Count 205 MPV 9.4 Immature Gran % (Auto) 0.3 Neut % (Auto) 77.8 H Lymph % (Auto) 13.5 L [place] % (Auto) 7.1 Eos % (Auto) 0.9 Baso % (Auto) 0.4 Lymph # (Auto) 0.9 L [place] # (Auto) 0.5 Eos # (Auto) 0.1 Baso # (Auto) 0.0 Abs Immat Gran (auto) 0.02 Absolute Neuts (auto) 5.3 Absolute Nucleated RBC 0.000 Nucleated RBC % (auto) 0.0 Anion Gap 14 Estim Creat Clear Calc 86.7 Estimated GFR > 60 POC Glucose 262 H Fasting Glucose 228 H Calcium 8.4 Assessment and Plan (1) Acute hyperglycemia: Status: Acute (2) Closed fracture of left hip: Status: Acute Assessment and Plan: 65 y/o woman presents with: Left femoral neck fracture, closed. Treatment per Orthopedic surgery Service. CXR and EKG unremarkable. s/p Left hip canelo day2 pain managemnt -tylenol,tramdol Type 2 diabetes mellitus with hyperglycemia. BG checks. Diabetic diet. on lantus /Insulin sliding scale. Hypoxia secondary to opiate:taper supplemental O2. Code status: [facility] ongoing need for stay: for left femoral neck fracture repair surgery-pain control/ fs monitering . Quality Stroke Does the patient have a stroke diagnosis?: No VTE Prior VTE?: No VTE Risk Level:: Medical - moderate - high VTE Device Contraindication: Treatment Not Indicated VTE Drug Contraindication: N/A - Med Ordered
[2025-06-21 16:00] VITALS: BP 153/72; PULSE 96; RESP 18; TEMP 36.8; O2SAT 97
[2025-06-21 16:26] LABS: Glucose, Whole Blood 206 mg/dL (60-115)
[2025-06-21 19:34] VITALS: BP 141/69; PULSE 93; RESP 18; TEMP 37.3; O2SAT 95
[2025-06-21 21:03] LABS: Glucose, Whole Blood 247 mg/dL (60-115)
[2025-06-21] MEDS: Insulin Glargine,Hum.rec.anlog 100 UNIT/ML 10 ML VIAL 18 UNIT SUBCUT (21:21)
--- NOTE | 2025-06-21 21:30 | PC.NURSE ---
This RN resumed care at 1900, on assessment pt reports 5/10 ache to left hip, reports understanding that it is to be expected and states it is tolerable. Aquacel to left hip CDI, no staining noted, +CMS, denies tingling or numbness to lower extremities, +pedal pulses bilaterally. Meds given per DEC. pt feels warm to touch, oral temp taken at 99.9, tylenol given per pt request, and will reassess. LSC/BSx4, soft and non-tender abd, Skin is intact, Denies CP/SOB at this time, pt understands how to use incentive spirometer, and can reach 2500. Bed in lowest position, bed alarm on, call yanez within reach, Will continue to reassess.
--- NOTE | 2025-06-21 23:08 | PC.NURSE ---
This RN resumed care at 1900, on assessment pt reports 5/10 ache to left hip, reports understanding that it is to be expected and states it is tolerable. Aquacel to left hip CDI, no staining noted, +CMS, denies tingling or numbness to lower extremities, +pedal pulses bilaterally. Meds given per DEC. pt feels warm to touch, oral temp taken at 99.9, will continue to monitor. LSC/BSx4, soft and non-tender abd, Skin is intact, Denies CP/SOB at this time, pt understands how to use incentive spirometer, and can reach volume of 2500. Bed in lowest position, bed alarm on, call yanez within reach, Will continue to reassess.
--- NOTE | 2025-06-22 00:33 | PC.NURSE ---
Per patients request tylenol for pain 5/10 to left hip
[2025-06-22 03:23] VITALS: BP 135/67; PULSE 84; RESP 16; TEMP 36.1; O2SAT 95
[2025-06-22 06:26] LABS: MANUAL DIFF FLAG NO
[2025-06-22 06:29] LABS: Hematocrit 33.2 % (37.0-47.0); Hemoglobin 11.2 g/dl (12.0-16.0); Imm Gran Abs Auto 0.02 X10*3/uL (0.00-0.03); Imm Gran Pct Auto 0.4 % (0.0-0.4); Lymphocytes Absolute Auto 1.2 X10*3/uL (1.2-4.9); Mean Corpuscular HGB Conc 33.7 g/dl (31.0-35.0); Mean Corpuscular Hemoglobin 29.0 pg (27.0-33.0); Mean Corpuscular Volume 86.0 fL (80.0-98.0); NRBC Abs Auto 0.000 X10*3/uL (0.0-0.012); NRBC Pct Auto 0.0 /100WBC (0.0-0.2); Platelet Count 196 X10*3/uL (160-400); Red Blood Count 3.86 X10*6/uL (4.20-5.50); White Blood Count 5.1 X10*3/uL (4.8-10.8)
[2025-06-22 06:41] LABS: Anion Gap 13 (12-20); Blood Urea Nitrogen 14 mg/dL (9-16); Calcium 8.3 mg/dL (8.4-10.2); Carbon Dioxide 26 mmol/L (22-29); Chloride 105 mmol/L (96-108); Creatinine Clr Calc Pharmacy 86.7; Estimated Glomerular Filt Rate > 60; Potassium 3.9 mmol/L (3.3-5.1); Sodium 140 mmol/L (135-145)
[2025-06-22 07:15] VITALS: BP 169/77; PULSE 93; RESP 14; TEMP 37.2; O2SAT 98
[2025-06-22 07:23] LABS: Glucose, Whole Blood 205 mg/dL (60-115)
[2025-06-22] MEDS: 0.9 % Sodium Chloride Flush 3 ML SYRINGE IVFLUSH ×2 (08:08→16:04)
--- NOTE | 2025-06-22 08:21 | HO.PM.IMPN ---
Subjective Subjective Date of Service: 06/22/25 Interval History: hip fx dm with hyperglycemia Review of Systems pain sis more tolerable today Review of Systems: Yes all other systems are reviewed and are negative Physical Exam Exam: Exam: Appearance: Alert.? Oriented X3.? cvs: rrr, [id number] . res: clear to auscultation ,no rhonchii or wheezing abd: no rebound or guarding ,nt, bs present. ext pulses present , no cyanosis. MS: left hip mild pain, no swelling or erythema neuro: axo3 , nonfocal. Vital Signs: Vital Signs: Last Vital Signs Temp 99.0 F 06/22/25 07:15 Pulse 93 06/22/25 07:15 Resp 14 06/22/25 07:15 BP 169/77 H 06/22/25 07:15 Pulse Ox 98 06/22/25 07:15 O2 Del Method Room Air 06/22/25 07:15 O2 Flow Rate 2 06/20/25 15:42 BMI result Body Mass Index 27.4 Objective Data Active Medications Acetaminophen (Acetaminophen 325 Mg Tablet) 975 mg PO Q6H PRN PRN Reason: Pain, Mild (Pain Scale 1-3) Last Admin: 06/22/25 00:30 Dose: 975 mg Documented By: MEDARDO Comments: per pt request for 5/10 pain Aspirin (Aspirin 325 Mg Tablet) 325 mg PO BID [facility] Last Admin: 06/22/25 08:07 Dose: 325 mg Documented By: THU Calcium Carbonate (Calcium Carbonate 750 Mg Tab.Chew) 750 mg PO Q4H PRN PRN Reason: Heartburn Dextrose (Dextrose 50 % 25 Gm/50 Ml Syringe) 25 gm IVPUSH Q15M PRN; Protocol PRN Reason: per Hypoglycemia Standing Ord. Dextrose (Dextrose 50 % 25 Gm/50 Ml Syringe) 25 gm IVPUSH Q15M PRN; Protocol PRN Reason: per Hypoglycemia Standing Ord. Enoxaparin Sodium (Enoxaparin Sodium 40 Mg/0.4 Ml Syringe) 40 mg SUBCUT Q24H [facility] Last Admin: 06/21/25 11:48 Dose: 40 mg Documented By: HAKEEM Glucose (Glucose Gel 15 Gm Gel..Gram.) 15 gm PO Q15M PRN; Protocol PRN Reason: per Hypoglycemia Standing Ord. Glucose (Glucose Gel 15 Gm Gel..Gram.) 15 gm PO Q15M PRN; Protocol PRN Reason: per Hypoglycemia Standing Ord. Insulin Glargine (Insulin Glargine,Hum.Rec.Anlog 100 Unit/Ml 10 Ml Vial) 18 unit SUBCUT BEDTIME [facility] Last Admin: 06/21/25 21:21 Dose: 18 unit Documented By: MEDARDO Insulin Human Lispro (Insulin Lispro 100 Unit/Ml 3 Ml Vial) 0 unit SUBCUT Q6H PRN; Protocol PRN Reason: hyperglycemia Last Admin: 06/20/25 01:06 Dose: 4 unit Documented By: CHIP Insulin Human Lispro (Insulin Lispro 100 Unit/Ml 3 Ml Vial) 0 unit SUBCUT QIDACHS [facility]; Protocol Last Admin: 06/22/25 08:07 Dose: 4 unit Documented By: THU Magnesium Hydroxide (Milk Of Magnesia 30 Ml Oral.Susp) 30 ml PO DAILY PRN PRN Reason: Constipation Melatonin (Melatonin 3 Mg Tablet) 6 mg PO BEDTIME PRN PRN Reason: Insomnia Naloxone HCl (Naloxone Hcl 0.4 Mg/Ml Vial) 0.04 mg IVPUSH Q5M PRN PRN Reason: Excessive sedation or RR < 8 Ondansetron HCl (Ondansetron Hcl 4 Mg/2 Ml Vial) 4 mg IVPUSH Q6H PRN PRN Reason: Nausea and Vomiting Last Admin: 06/20/25 11:39 Dose: 4 mg Documented By: HAKEEM Prochlorperazine Edisylate (Prochlorperazine Edisylate 10 Mg/2 Ml Vial) 5 mg IVPUSH Q6H PRN PRN Reason: Nausea and Vomiting Last Admin: 06/19/25 12:56 Dose: 5 mg Documented By: YINA-ACACIA Sodium Chloride (0.9 % Sodium Chloride Flush 3 Ml Syringe) 3 ml IVFLUSH [facility] Last Admin: 06/22/25 08:08 Dose: 3 ml Documented By: THU Tramadol HCl (Tramadol Hcl 50 Mg Tablet) 25 mg PO Q6H PRN PRN Reason: Pain, Severe (Pain Scale 7-10) Labs 06/22/25 05:59 06/22/25 05:59 Labs: Laboratory Results - last 24 hr 0806/21/25 06/21/25 08:37 11:39 16:18 MCV 86.2 MCH 29.1 MCHC 33.8 RDW 12.3 Plt Count 205 MPV 9.4 Immature Gran % (Auto) 0.3 Neut % (Auto) 77.8 H Lymph % (Auto) 13.5 L [place] % (Auto) 7.1 Eos % (Auto) 0.9 Baso % (Auto) 0.4 Lymph # (Auto) 0.9 L [place] # (Auto) 0.5 Eos # (Auto) 0.1 Baso # (Auto) 0.0 Abs Immat Gran (auto) 0.02 Absolute Neuts (auto) 5.3 Absolute Nucleated RBC 0.000 Nucleated RBC % (auto) 0.0 Anion Gap 14 Estim Creat Clear Calc 86.7 Estimated GFR > 60 POC Glucose 262 H 206 H Fasting Glucose 228 H Calcium 8.4 06/21/25 06/22/25 06/22/25 20:55 05:59 07:18 MCV 86.0 MCH 29.0 MCHC 33.7 RDW 12.2 Plt Count 196 MPV 9.4 Immature Gran % (Auto) 0.4 Neut % (Auto) 63.6 Lymph % (Auto) 22.9 [place] % (Auto) 10.7 Eos % (Auto) 2.0 Baso % (Auto) 0.4 Lymph # (Auto) 1.2 [place] # (Auto) 0.5 Eos # (Auto) 0.1 Baso # (Auto) 0.0 Abs Immat Gran (auto) 0.02 Absolute Neuts (auto) 3.2 Absolute Nucleated RBC 0.000 Nucleated RBC % (auto) 0.0 Anion Gap 13 Estim Creat Clear Calc 86.7 Estimated GFR > 60 POC Glucose 247 H 205 H Fasting Glucose 220 H Calcium 8.3 L Assessment and Plan (1) Acute hyperglycemia: Status: Acute (2) Closed fracture of left hip: Status: Acute Assessment and Plan: 65 y/o woman presents with: Left femoral neck fracture, closed. Treatment per Orthopedic surgery Service. CXR and EKG unremarkable. s/p Left hip canelo day2 pain managemnt -tylenol,tramdol Type 2 diabetes mellitus with hyperglycemia: improving : BG checks. Diabetic diet. on lantus /Insulin sliding scale. Hypoxia secondary to opiate:taper supplemental O2. Code status: Full DVT prophylaxis:mech devices ,asa ongoing need for stay: awaits rehab placement Quality Stroke Does the patient have a stroke diagnosis?: No VTE Prior VTE?: No VTE Risk Level:: Medical - moderate - high VTE Device Contraindication: Treatment Not Indicated VTE Drug Contraindication: N/A - Med Ordered
[2025-06-22 11:03] LABS: Glucose, Whole Blood 207 mg/dL (60-115)
[2025-06-22 15:23] VITALS: BP 142/68; PULSE 88; RESP 18; TEMP 36.7; O2SAT 98
[2025-06-22 15:51] LABS: Glucose, Whole Blood 209 mg/dL (60-115)
[2025-06-22 19:33] VITALS: BP 135/74; PULSE 92; RESP 18; TEMP 36.9; O2SAT 94
[2025-06-22 20:09] LABS: Glucose, Whole Blood 244 mg/dL (60-115)
[2025-06-22] MEDS: Insulin Glargine,Hum.rec.anlog 100 UNIT/ML 10 ML VIAL 18 UNIT SUBCUT (22:08)
[2025-06-23 02:57] VITALS: RESP 16
[2025-06-23 03:15] VITALS: BP 132/77; PULSE 79; RESP 16; TEMP 36.3; O2SAT 98
[2025-06-23 06:47] LABS: MANUAL DIFF FLAG NO
[2025-06-23 07:01] LABS: Hematocrit 32.8 % (37.0-47.0); Hemoglobin 11.2 g/dl (12.0-16.0); Imm Gran Abs Auto 0.01 X10*3/uL (0.00-0.03); Imm Gran Pct Auto 0.2 % (0.0-0.4); Lymphocytes Absolute Auto 1.4 X10*3/uL (1.2-4.9); Mean Corpuscular HGB Conc 34.1 g/dl (31.0-35.0); Mean Corpuscular Hemoglobin 28.9 pg (27.0-33.0); Mean Corpuscular Volume 84.5 fL (80.0-98.0); NRBC Abs Auto 0.000 X10*3/uL (0.0-0.012); NRBC Pct Auto 0.0 /100WBC (0.0-0.2); Platelet Count 228 X10*3/uL (160-400); Red Blood Count 3.88 X10*6/uL (4.20-5.50); White Blood Count 4.7 X10*3/uL (4.8-10.8)
[2025-06-23 07:22] LABS: Anion Gap 13 (12-20); Blood Urea Nitrogen 10 mg/dL (9-16); Calcium 8.5 mg/dL (8.4-10.2); Carbon Dioxide 26 mmol/L (22-29); Chloride 106 mmol/L (96-108); Creatinine Clr Calc Pharmacy 86.7; Estimated Glomerular Filt Rate > 60; Potassium 3.7 mmol/L (3.3-5.1); Sodium 141 mmol/L (135-145)
[2025-06-23 07:33] LABS: Glucose, Whole Blood 157 mg/dL (60-115)
[2025-06-23] MEDS: 0.9 % Sodium Chloride Flush 3 ML SYRINGE IVFLUSH ×3 (07:38→20:51)
[2025-06-23 07:39] VITALS: BP 148/77; PULSE 88; RESP 14; TEMP 36.2; O2SAT 99
[2025-06-23] MEDS: Milk of Magnesia 30 ML ORAL.SUSP PO (07:42)
[2025-06-23 11:07] LABS: Glucose, Whole Blood 204 mg/dL (60-115)
--- NOTE | 2025-06-23 11:55 | HO.PM.IMPN ---
Subjective Subjective Date of Service: 06/23/25 Interval History: hip fx dm with hyperglycemia Review of Systems pain imprving but similar to yesterday encouraged to try tramdol/tylenol together ,she does not want to take opoids Review of Systems: Yes all other systems are reviewed and are negative Physical Exam Exam: Exam: Appearance: Alert.? Oriented X3.? cvs: rrr, [id number] . res: clear to auscultation ,no rhonchii or wheezing abd: no rebound or guarding ,nt, bs present. ext pulses present , no cyanosis. MS: left hip mild pain, no swelling or erythema neuro: axo3 , nonfocal. Vital Signs: Vital Signs: Last Vital Signs Temp 97.2 F 06/23/25 07:39 Pulse 88 06/23/25 07:39 Resp 14 06/23/25 07:39 BP 148/77 H 06/23/25 07:39 Pulse Ox 99 06/23/25 07:39 O2 Del Method Room Air 06/23/25 07:39 O2 Flow Rate 2 06/20/25 15:42 BMI result Body Mass Index 27.4 Objective Data Active Medications Acetaminophen (Acetaminophen 325 Mg Tablet) 975 mg PO Q6H PRN PRN Reason: Pain, Mild (Pain Scale 1-3) Last Admin: 06/23/25 01:57 Dose: 975 mg Documented By: MEDARDO Aspirin (Aspirin 325 Mg Tablet) 325 mg PO BID [facility] Last Admin: 06/23/25 07:38 Dose: 325 mg Documented By: THU Calcium Carbonate (Calcium Carbonate 750 Mg Tab.Chew) 750 mg PO Q4H PRN PRN Reason: Heartburn Dextrose (Dextrose 50 % 25 Gm/50 Ml Syringe) 25 gm IVPUSH Q15M PRN; Protocol PRN Reason: per Hypoglycemia Standing Ord. Dextrose (Dextrose 50 % 25 Gm/50 Ml Syringe) 25 gm IVPUSH Q15M PRN; Protocol PRN Reason: per Hypoglycemia Standing Ord. Enoxaparin Sodium (Enoxaparin Sodium 40 Mg/0.4 Ml Syringe) 40 mg SUBCUT Q24H [facility] Last Admin: 06/22/25 11:30 Dose: 40 mg Documented By: THU Glucose (Glucose Gel 15 Gm Gel..Gram.) 15 gm PO Q15M PRN; Protocol PRN Reason: per Hypoglycemia Standing Ord. Glucose (Glucose Gel 15 Gm Gel..Gram.) 15 gm PO Q15M PRN; Protocol PRN Reason: per Hypoglycemia Standing Ord. Insulin Glargine (Insulin Glargine,Hum.Rec.Anlog 100 Unit/Ml 10 Ml Vial) 18 unit SUBCUT BEDTIME [facility] Last Admin: 06/22/25 22:08 Dose: 18 unit Documented By: LAY Insulin Human Lispro (Insulin Lispro 100 Unit/Ml 3 Ml Vial) 0 unit SUBCUT Q6H PRN; Protocol PRN Reason: hyperglycemia Last Admin: 06/20/25 01:06 Dose: 4 unit Documented By: CHIP Insulin Human Lispro (Insulin Lispro 100 Unit/Ml 3 Ml Vial) 0 unit SUBCUT QIDAS [facility]; Protocol Last Admin: 06/23/25 07:37 Dose: 2 unit Documented By: THU Magnesium Hydroxide (Milk Of Magnesia 30 Ml Oral.Susp) 30 ml PO DAILY PRN PRN Reason: Constipation Last Admin: 06/23/25 07:42 Dose: 30 ml Documented By: THU Melatonin (Melatonin 3 Mg Tablet) 6 mg PO BEDTIME PRN PRN Reason: Insomnia Naloxone HCl (Naloxone Hcl 0.4 Mg/Ml Vial) 0.04 mg IVPUSH Q5M PRN PRN Reason: Excessive sedation or RR < 8 Ondansetron HCl (Ondansetron Hcl 4 Mg/2 Ml Vial) 4 mg IVPUSH Q6H PRN PRN Reason: Nausea and Vomiting Last Admin: 06/20/25 11:39 Dose: 4 mg Documented By: HAKEEM Prochlorperazine Edisylate (Prochlorperazine Edisylate 10 Mg/2 Ml Vial) 5 mg IVPUSH Q6H PRN PRN Reason: Nausea and Vomiting Last Admin: 06/19/25 12:56 Dose: 5 mg Documented By: YINA-ACACIA Sodium Chloride (0.9 % Sodium Chloride Flush 3 Ml Syringe) 3 ml IVFLUSH [facility] Last Admin: 06/23/25 07:38 Dose: 3 ml Documented By: THU Tramadol HCl (Tramadol Hcl 50 Mg Tablet) 25 mg PO Q6H PRN PRN Reason: Pain, Severe (Pain Scale 7-10) Last Admin: 06/23/25 09:08 Dose: 25 mg Documented By: THU Labs 06/23/25 06:21 06/23/25 06:21 Labs: Laboratory Results - last 24 hr 06/22/25 06/22/25 06/23/25 15:46 19:36 06:21 MCV 84.5 MCH 28.9 MCHC 34.1 RDW 12.0 Plt Count 228 MPV 9.3 L Immature Gran % (Auto) 0.2 Neut % (Auto) 56.5 Lymph % (Auto) 28.7 [place] % (Auto) 11.5 H Eos % (Auto) 2.5 Baso % (Auto) 0.6 Lymph # (Auto) 1.4 [place] # (Auto) 0.5 Eos # (Auto) 0.1 Baso # (Auto) 0.0 Abs Immat Gran (auto) 0.01 Absolute Neuts (auto) 2.7 Absolute Nucleated RBC 0.000 Nucleated RBC % (auto) 0.0 Anion Gap 13 Estim Creat Clear Calc 86.7 Estimated GFR > 60 POC Glucose 209 H 244 H Fasting Glucose 163 H Calcium 8.5 06/23/25 06/23/25 07:30 11:03 MCV MCH MCHC RDW Plt Count MPV Immature Gran % (Auto) Neut % (Auto) Lymph % (Auto) [place] % (Auto) Eos % (Auto) Baso % (Auto) Lymph # (Auto) [place] # (Auto) Eos # (Auto) Baso # (Auto) Abs Immat Gran (auto) Absolute Neuts (auto) Absolute Nucleated RBC Nucleated RBC % (auto) Anion Gap Estim Creat Clear Calc Estimated GFR POC Glucose 157 H 204 H Fasting Glucose Calcium Assessment and Plan (1) Acute hyperglycemia: Status: Acute (2) Closed fracture of left hip: Status: Acute Assessment and Plan: 65 y/o woman presents with: Left femoral neck fracture, closed. Treatment per Orthopedic surgery Service. CXR and EKG unremarkable. s/p Left hip canelo day2 pain managemnt -tylenol,tramdol Type 2 diabetes mellitus with hyperglycemia: improving : BG checks. Diabetic diet. on lantus /Insulin sliding scale. Hypoxia secondary to opiate:taper supplemental O2. Code status: Full DVT prophylaxis:mech devices ,asa ongoing need for stay: awaits rehab placement Quality Stroke Does the patient have a stroke diagnosis?: No VTE Prior VTE?: No VTE Risk Level:: Medical - moderate - high VTE Device Contraindication: Treatment Not Indicated VTE Drug Contraindication: N/A - Med Ordered
[2025-06-23 14:59] VITALS: BP 148/75; PULSE 89; RESP 18; TEMP 36.9; O2SAT 96
[2025-06-23 16:02] LABS: Glucose, Whole Blood 104 mg/dL (60-115)
[2025-06-23 18:57] VITALS: BP 136/74; PULSE 87; RESP 18; TEMP 36.4; O2SAT 97
[2025-06-23 20:22] LABS: Glucose, Whole Blood 242 mg/dL (60-115)
[2025-06-23] MEDS: Insulin Glargine,Hum.rec.anlog 100 UNIT/ML 10 ML VIAL 18 UNIT SUBCUT (20:50)
[2025-06-24 03:39] VITALS: BP 152/79; PULSE 78; RESP 18; TEMP 36.6; O2SAT 96
[2025-06-24 06:08] LABS: MANUAL DIFF FLAG NO
[2025-06-24 06:31] LABS: Anion Gap 14 (12-20); Blood Urea Nitrogen 8 mg/dL (9-16); Calcium 8.6 mg/dL (8.4-10.2); Carbon Dioxide 26 mmol/L (22-29); Chloride 105 mmol/L (96-108); Creatinine Clr Calc Pharmacy 89.4; Estimated Glomerular Filt Rate > 60; Potassium 4.0 mmol/L (3.3-5.1); Sodium 141 mmol/L (135-145)
[2025-06-24 06:44] LABS: Hematocrit 34.2 % (37.0-47.0); Hemoglobin 11.4 g/dl (12.0-16.0); Imm Gran Abs Auto 0.01 X10*3/uL (0.00-0.03); Imm Gran Pct Auto 0.2 % (0.0-0.4); Lymphocytes Absolute Auto 1.4 X10*3/uL (1.2-4.9); Mean Corpuscular HGB Conc 33.3 g/dl (31.0-35.0); Mean Corpuscular Hemoglobin 28.6 pg (27.0-33.0); Mean Corpuscular Volume 85.7 fL (80.0-98.0); NRBC Abs Auto 0.000 X10*3/uL (0.0-0.012); NRBC Pct Auto 0.0 /100WBC (0.0-0.2); Platelet Count 271 X10*3/uL (160-400); Red Blood Count 3.99 X10*6/uL (4.20-5.50); White Blood Count 4.3 X10*3/uL (4.8-10.8)
[2025-06-24 07:21] VITALS: BP 168/86; PULSE 84; RESP 18; TEMP 36.9; O2SAT 99
[2025-06-24 07:42] LABS: Glucose, Whole Blood 137 mg/dL (60-115)
[2025-06-24] MEDS: 0.9 % Sodium Chloride Flush 3 ML SYRINGE IVFLUSH ×3 (07:56→19:43)
[2025-06-24 11:12] LABS: Glucose, Whole Blood 168 mg/dL (60-115)
--- NOTE | 2025-06-24 13:39 | HO.PM.IMPN ---
Subjective Subjective Date of Service: 06/24/25 Interval History: hip fx dm with hyperglycemia Review of Systems pain seems improving denies new c/o. Physical Exam Exam: Exam: Appearance: Alert.? Oriented X3.? cvs: [id number], [id number] . res: clear to auscultation ,no rhonchii or wheezing abd: no rebound or guarding ,nt, bs present. ext pulses present , no cyanosis. MS: left hip mild pain, no swelling or erythema neuro: axo3 , nonfocal. Vital Signs: Vital Signs: Last Vital Signs Temp 98.5 F 06/24/25 07:21 Pulse 84 06/24/25 07:21 Resp 18 06/24/25 07:21 BP 168/86 H 06/24/25 07:21 Pulse Ox 99 06/24/25 07:21 O2 Del Method Room Air 06/24/25 07:21 O2 Flow Rate 2 06/20/25 15:42 BMI result Body Mass Index 27.4 Objective Data Active Medications Acetaminophen (Acetaminophen 325 Mg Tablet) 975 mg PO Q6H PRN PRN Reason: Pain, Mild (Pain Scale 1-3) Last Admin: 06/24/25 07:49 Dose: 975 mg Documented By: REBECA Aspirin (Aspirin 325 Mg Tablet) 325 mg PO BID [facility] Last Admin: 06/24/25 07:46 Dose: 325 mg Documented By: REBECA Calcium Carbonate (Calcium Carbonate 750 Mg Tab.Chew) 750 mg PO Q4H PRN PRN Reason: Heartburn Dextrose (Dextrose 50 % 25 Gm/50 Ml Syringe) 25 gm IVPUSH Q15M PRN; Protocol PRN Reason: per Hypoglycemia Standing Ord. Dextrose (Dextrose 50 % 25 Gm/50 Ml Syringe) 25 gm IVPUSH Q15M PRN; Protocol PRN Reason: per Hypoglycemia Standing Ord. Enoxaparin Sodium (Enoxaparin Sodium 40 Mg/0.4 Ml Syringe) 40 mg SUBCUT Q24H [facility] Last Admin: 06/24/25 11:49 Dose: 40 mg Documented By: REBECA Glucose (Glucose Gel 15 Gm Gel..Gram.) 15 gm PO Q15M PRN; Protocol PRN Reason: per Hypoglycemia Standing Ord. Glucose (Glucose Gel 15 Gm Gel..Gram.) 15 gm PO Q15M PRN; Protocol PRN Reason: per Hypoglycemia Standing Ord. Insulin Glargine (Insulin Glargine,Hum.Rec.Anlog 100 Unit/Ml 10 Ml Vial) 18 unit SUBCUT BEDTIME [facility] Last Admin: 06/23/25 20:50 Dose: 18 unit Documented By: TERENCE Insulin Human Lispro (Insulin Lispro 100 Unit/Ml 3 Ml Vial) 0 unit SUBCUT Q6H PRN; Protocol PRN Reason: hyperglycemia Last Admin: 06/20/25 01:06 Dose: 4 unit Documented By: CHIP Insulin Human Lispro (Insulin Lispro 100 Unit/Ml 3 Ml Vial) 0 unit SUBCUT QIDACHS [facility]; Protocol Last Admin: 06/24/25 11:48 Dose: 2 unit Documented By: REBECA Magnesium Hydroxide (Milk Of Magnesia 30 Ml Oral.Susp) 30 ml PO DAILY PRN PRN Reason: Constipation Last Admin: 06/23/25 07:42 Dose: 30 ml Documented By: THU Melatonin (Melatonin 3 Mg Tablet) 6 mg PO BEDTIME PRN PRN Reason: Insomnia Naloxone HCl (Naloxone Hcl 0.4 Mg/Ml Vial) 0.04 mg IVPUSH Q5M PRN PRN Reason: Excessive sedation or RR < 8 Ondansetron HCl (Ondansetron Hcl 4 Mg/2 Ml Vial) 4 mg IVPUSH Q6H PRN PRN Reason: Nausea and Vomiting Last Admin: 06/20/25 11:39 Dose: 4 mg Documented By: HAKEEM Prochlorperazine Edisylate (Prochlorperazine Edisylate 10 Mg/2 Ml Vial) 5 mg IVPUSH Q6H PRN PRN Reason: Nausea and Vomiting Last Admin: 06/19/25 12:56 Dose: 5 mg Documented By: YINA-ACACIA Sodium Chloride (0.9 % Sodium Chloride Flush 3 Ml Syringe) 3 ml IVFLUSH [facility] Last Admin: 06/24/25 07:56 Dose: 3 ml Documented By: REBECA Tramadol HCl (Tramadol Hcl 50 Mg Tablet) 25 mg PO Q6H PRN PRN Reason: Pain, Severe (Pain Scale 7-10) Last Admin: 06/24/25 01:41 Dose: 25 mg Documented By: TERENCE Labs 06/24/25 05:48 06/24/25 05:48 Labs: Laboratory Results - last 24 hr 06/23/25 06/23/25 06/24/25 15:46 20:12 05:48 MCV 85.7 MCH 28.6 MCHC 33.3 RDW 11.9 Plt Count 271 MPV 9.2 L Immature Gran % (Auto) 0.2 Neut % (Auto) 53.4 Lymph % (Auto) 32.2 [place] % (Auto) 10.7 Eos % (Auto) 2.8 Baso % (Auto) 0.7 Lymph # (Auto) 1.4 [place] # (Auto) 0.5 Eos # (Auto) 0.1 Baso # (Auto) 0.0 Abs Immat Gran (auto) 0.01 Absolute Neuts (auto) 2.3 Absolute Nucleated RBC 0.000 Nucleated RBC % (auto) 0.0 Anion Gap 14 Estim Creat Clear Calc 89.4 Estimated GFR > 60 POC Glucose 104 242 H Fasting Glucose 145 H Calcium 8.6 06/24/25 06/24/25 07:34 11:06 MCV MCH MCHC RDW Plt Count MPV Immature Gran % (Auto) Neut % (Auto) Lymph % (Auto) [place] % (Auto) Eos % (Auto) Baso % (Auto) Lymph # (Auto) [place] # (Auto) Eos # (Auto) Baso # (Auto) Abs Immat Gran (auto) Absolute Neuts (auto) Absolute Nucleated RBC Nucleated RBC % (auto) Anion Gap Estim Creat Clear Calc Estimated GFR POC Glucose 137 H 168 H Fasting Glucose Calcium Assessment and Plan (1) Acute hyperglycemia: Status: Acute (2) Closed fracture of left hip: Status: Acute Assessment and Plan: 65 y/o woman presents with: Left femoral neck fracture, closed. Treatment per Orthopedic surgery Service. CXR and EKG unremarkable. s/p Left hip canelo day3 pain managemnt -tylenol,tramdol Type 2 diabetes mellitus with hyperglycemia: improving : BG checks. Diabetic diet. on lantus /Insulin sliding scale. Hypoxia secondary to opiate:taper supplemental O2. Code status: Full DVT prophylaxis:mech devices ,asa ongoing need for stay: awaits rehab placement Quality Stroke Does the patient have a stroke diagnosis?: No VTE Prior VTE?: No VTE Risk Level:: Medical - moderate - high VTE Device Contraindication: Treatment Not Indicated VTE Drug Contraindication: N/A - Med Ordered
--- NOTE | 2025-06-24 14:54 | MHC.CM.PN ---
Addendum entered by Gretchen Gong 06/24/25 15:06: PT REPORTS [facility] IS HER PREFERENCE THEY HAVE OFFERED A BED AND WILL SUBMIT FOR AUTH Original Note: PT WAS ACCEPTED AT [facility], HOWEVER [employer] DENIED AND OFFERED A PEER TO PEER THE PEER TO PEER WAS SCHEDULED FOR TODAY VS TOMORROW BETWEEN 1100 AND 1300 HOURS THEY DID NOT CALL TODAY, CM CALLED THEM AND THEY CONFIRMED IT WOULD NOT BE UNTIL TOMORROW CM SPOKE TO PT WHO INDICATED PT WAS DOING WELL AND COULD GO HOME, HOWEVER HAS STAIRS SO IS WORRIED CM MET WITH PT WHO REPORTS SHE WOULD BE AGREEABLE TO STR AND WILL CALL HER FRIEND FOR SNF RECOMMENDATIONS CM WILL MEET WITH HER AGAIN SOON FOR PREFERENCES
[2025-06-24 15:39] VITALS: BP 159/77; PULSE 88; RESP 20; TEMP 36.6; O2SAT 98
[2025-06-24 16:17] LABS: Glucose, Whole Blood 155 mg/dL (60-115)
[2025-06-24 19:34] VITALS: BP 169/77; PULSE 80; RESP 18; TEMP 36.3; O2SAT 97
[2025-06-24 19:51] LABS: Glucose, Whole Blood 195 mg/dL (60-115)
[2025-06-24] MEDS: Insulin Glargine,Hum.rec.anlog 100 UNIT/ML 10 ML VIAL 18 UNIT SUBCUT (20:09)
[2025-06-24 20:43] VITALS: RESP 18
[2025-06-24 23:39] VITALS: BP 138/73; PULSE 80; RESP 18; TEMP 36.3; O2SAT 96
[2025-06-25 03:27] VITALS: BP 138/74; PULSE 73; RESP 18; TEMP 36.3; O2SAT 97
[2025-06-25 06:04] LABS: MANUAL DIFF FLAG NO
[2025-06-25 06:25] LABS: Anion Gap 13 (12-20); Blood Urea Nitrogen 16 mg/dL (9-16); Calcium 8.4 mg/dL (8.4-10.2); Carbon Dioxide 24 mmol/L (22-29); Chloride 105 mmol/L (96-108); Creatinine Clr Calc Pharmacy 74.3; Estimated Glomerular Filt Rate > 60; Potassium 4.1 mmol/L (3.3-5.1); Sodium 138 mmol/L (135-145)
[2025-06-25 06:55] LABS: Hematocrit 33.5 % (37.0-47.0); Hemoglobin 11.4 g/dl (12.0-16.0); Imm Gran Abs Auto 0.03 X10*3/uL (0.00-0.03); Imm Gran Pct Auto 0.7 % (0.0-0.4); Lymphocytes Absolute Auto 1.6 X10*3/uL (1.2-4.9); Mean Corpuscular HGB Conc 34.0 g/dl (31.0-35.0); Mean Corpuscular Hemoglobin 28.9 pg (27.0-33.0); Mean Corpuscular Volume 84.8 fL (80.0-98.0); NRBC Abs Auto 0.000 X10*3/uL (0.0-0.012); NRBC Pct Auto 0.0 /100WBC (0.0-0.2); Platelet Count 311 X10*3/uL (160-400); Red Blood Count 3.95 X10*6/uL (4.20-5.50); White Blood Count 4.5 X10*3/uL (4.8-10.8)
[2025-06-25 07:10] VITALS: BP 145/75; PULSE 82; RESP 17; TEMP 36.6; O2SAT 98
[2025-06-25 07:33] LABS: Glucose, Whole Blood 173 mg/dL (60-115)
[2025-06-25] MEDS: 0.9 % Sodium Chloride Flush 3 ML SYRINGE IVFLUSH (07:41)
[2025-06-25 11:20] LABS: Glucose, Whole Blood 188 mg/dL (60-115)
--- NOTE | 2025-06-25 13:19 | P.DS_ITS ---
DS: Providers Provider Date of Service: 06/25/25 Date of admission: 06/19/25 11:47 Date of discharge: 06/25/25 Primary care physician: None Physician Consults: 06/19/25 12:01 Consult to Orthopedics Routine Consulting Provider: [facility] Reason for consultation: Left femur fracture Has provider been notified: Yes Attending physician on discharge: Brooke Liriano Discharging clinician: Brooke Liriano DS: Diagnosis Discharge Diagnosis (1) Acute hyperglycemia: Status: Acute (2) Closed fracture of left hip: Status: Acute DS: Summary Hospital Course Hospital Course: HPI:65 years old woman with significant past medical history significant for diabetes mellitus on diet presents to the emergency department after sustaining a mechanical fall this morning. She was able to stand up and walk. She denied any symptoms such as chest pain, shortness on breath, cough, abdominal pain or diarrhea. She because quite nauseous after receiving IV opiates. She has not history of heart heart or kidney disease, or strokes. She does not take blood thinners. She denied tobacco smoking, alcohol abuse illicit drug use. In the ED, she was found to have stable vital signs. She placed on supplemental oxygen after receiving IV opiates. Blood workup showed no leukocytosis. Hemoglobin is 14.1 and platelets 254. There are no significant electrolyte imbalances. CO2 is 21, BUN 17 and creatinine 0.79. Glucose was initially 455, last was 342. LFTs and lipase are basically unremarkable. Alk-phos is 182. BNP is less than 10. Beta hydroxybutyrate is 1.22. UA showed no evidence of UTI. Viral testing for COVID-19, influenza and RSV. Hip and pelvic x-ray showed acute displaced fracture of the left femoral neck. CXR showed chronic interstitial lung disease without acute airspace disease. ECG showed normal sinus rhythm, HR 95 bpm without obvious acute ischemic changes when compared with prior. ED tx: Zofran 4 mg IV, NS 1 L bolus, insulin R 5 units, Dilaudid 1 mg IV. Hospital course: Left femoral neck fracture, closed. Treatment per Orthopedic surgery Service. CXR and EKG unremarkable. s/p Left hip canelo pain managemnt -tylenol,tramdol Type 2 diabetes mellitus with hyperglycemia: improving : BG checks. Diabetic diet. on lantus /Insulin sliding scale. Hypoxia secondary to opiate:off O2. Asymptomatic. Asymptomatic. Sats are 98% on room air. Denies any respiratory symptoms. PT initially recommended acute rehab subsequently on follow-up recommended as STR. Plan: DC ortho instructions hip fracture below. continue asa for dvt porphylax. Continue omeprazole until patient is on aspirin. hip fracture -instruction as above,pain control with tylenol /tramadol lantus 18 units bedtime ,fs with sliding scale. Above management discussed with the patient detail length she understand and in agreement with the above plan, time spent 45 minute. All questions answered. Staff was present during conversation. Time Attestation Total time managing care of this patient today: 45 mintues. Discharge Coordination Time (in mins): 45 min Quality: Safe Use of Opioids Does Pt have an Active Cancer Diagnosis on the Problem List?: No Quality: Stroke Does the patient have a stroke diagnosis?: No Physical Exam Exam: Exam: Appearance: Alert.? Oriented X3.? cvs: rrr, [id number] . res: clear to auscultation ,no rhonchii or wheezing abd: no rebound or guarding ,nt, bs present. ext pulses present , no cyanosis. MS: left hip mild pain, no swelling or erythema neuro: axo3 , nonfocal. Vital Signs: Vital Signs: Last Vital Signs Temp 97.9 F 06/25/25 07:10 Pulse 82 06/25/25 07:10 Resp 17 06/25/25 07:10 BP 145/75 H 06/25/25 07:10 Pulse Ox 98 06/25/25 07:10 O2 Del Method Room Air 06/25/25 07:10 O2 Flow Rate 2 06/20/25 15:42 BMI result Body Mass Index 27.4 DS: Data Data Completed and Pending Completed studies during hospitalization [Text1]: Pending at discharge 06/20/25 08:26 Surgical [PTH] Routine Labs on day of discharge: Laboratory Results - last 24 hr 06/24/25 06/24/25 06/25/25 16:14 19:46 05:17 WBC 4.5 L RBC 3.95 L Hgb 11.4 L Hct 33.5 L MCV 84.8 MCH 28.9 MCHC 34.0 RDW 11.9 Plt Count 311 MPV 9.0 L Immature Gran % (Auto) 0.7 H Neut % (Auto) 48.3 Lymph % (Auto) 34.6 [place] % (Auto) 12.1 H Eos % (Auto) 3.6 Baso % (Auto) 0.7 Lymph # (Auto) 1.6 [place] # (Auto) 0.5 Eos # (Auto) 0.2 Baso # (Auto) 0.0 Abs Immat Gran (auto) 0.03 Absolute Neuts (auto) 2.2 Absolute Nucleated RBC 0.000 Nucleated RBC % (auto) 0.0 Sodium 138 Potassium 4.1 Chloride 105 Carbon Dioxide 24 Anion Gap 13 BUN 16 Creatinine 0.77 Estim Creat Clear Calc 74.3 Estimated GFR > 60 POC Glucose 155 H 195 H Fasting Glucose 194 H Calcium 8.4 06/25/25 06/25/25 07:13 11:15 WBC RBC Hgb Hct MCV MCH MCHC RDW Plt Count MPV Immature Gran % (Auto) Neut % (Auto) Lymph % (Auto) [place] % (Auto) Eos % (Auto) Baso % (Auto) Lymph # (Auto) [place] # (Auto) Eos # (Auto) Baso # (Auto) Abs Immat Gran (auto) Absolute Neuts (auto) Absolute Nucleated RBC Nucleated RBC % (auto) Sodium Potassium Chloride Carbon Dioxide Anion Gap BUN Creatinine Estim Creat Clear Calc Estimated GFR POC Glucose 173 H 188 H Fasting Glucose Calcium Imaging Chest x-ray: Radiologist's impression: ITS Impressions Hip/Pelvis X-Ray 06/19/25 09:06 IMPRESSION: Acute displaced fracture, left femoral neck. Chest X-Ray 06/19/25 09:14 IMPRESSION: Consider chronic interstitial lung disease without acute airspace disease. Pelvis X-Ray 06/20/25 09:05 IMPRESSION: Status post total left hip arthroplasty prosthesis. Satisfactory. Discharge Plan Discharge Anticipated Discharge Date/Time: 06/25/25 13:12 Patient Disposition: Xfer SNF Discharge Diagnosis: dm , left hip fracture Referrals: Jj Phipps PA-C [Physician Polygraph Technician, Orthopedics] - 07/05/25 9:00 am Referral Note: 07/05/25 at 9am Physician,None [Primary Care Provider, Medical] - 1 Week Discharge Medications: New acetaminophen 325 mg Tablet 975 mg PO Q6H PRN (Reason: Pain, Mild (Pain Scale 1-3)) Qty: 1 0RF aspirin 325 mg Tablet 325 mg PO BID Qty: 1 0RF tramadol 50 mg Tablet 25 mg PO Q6H PRN (Reason: Pain, Severe (Pain Scale 7-10)) Qty: 10 0RF insulin glargine [Lantus U-100 Insulin] 100 unit/mL Solution 18 unit subcut BEDTIME Qty: 1 0RF insulin lispro [Admelog U-100 Insulin lispro] 100 unit/mL Solution See Protocol subcut QIDACHS Qty: 1 0RF Protocol: Insulin Correction Scale Less than or equal to 110 ---- Give (units): 0 111 to 150 Give (units): 0 151 to 200 Give (units): 2 201 to 250 Give (units): 4 251 to 300 Give (units): 6 301 to 350 Give (units): 8 Greater than 350 Give (units): 10 Call MD if Blood Glucose > : 350 omeprazole 20 mg capsule,delayed release(DR/EC) 20 mg PO DAILY Qty: 1 0RF Discharge Orders: Discharge Order (Routine); Ordered 06/25/25 Ordered By: Brooke Liriano Diet: Advance to usual diet Activity on Discharge: As tolerated Stand Alone Forms: Patient Portal Discharge page Print Language: Belarusian Activity Restrictions/Additional Instructions: Physical Therapy for total hip arthroplasty: posterior precautions, gait training, ROM, strength Limit stair climbing No showering, no tub bath-keep dressing clean, dry and intact No driving x 6 weeks Continue Aspirin tabs once a day x 6 weeks Follow up with [facility] Orthopedics in 2 weeks -Bandage/Incision Site Care: -Ice 20mins at a time -Make sure you use a towel or cloth on your skin as a barrier -DO NOT remove the bandage -Keep Bandage clean, dry and intact -Do not get the bandage wet: -No tub bath, pools or hot tubs -If there are any concerns regarding the bandage please call orthopedics: [phone] -Hip Precautions: -Do not bend hip past 90 degrees -Do not cross at your knees or ankles -Do not turn your operative leg inward (avoid twisting the foot in) -Avoid low chairs and deep couches -Use supportive shoes with nonslip soles -Physical Therapy: -Patient is WBAT with the use of a walker -Gait training -Limit stair climbing -Hip range of motion -Strengthening: Quadriceps and hip muscles -Walking: Gait training and gradually increasing distance with walker -Ankle pumps and incentive spirometry to limit the risk of blood clot -Diet: -Resume regular diet as tolerated. -Drink plenty of fluids and eat a high-fiber foods to avoid constipation -This is a common side effect of pain medication) -Take stool softeners as prescribed -Blood Clot Prevention: -Take the prescribed blood thinner as directed for 6 weeks -Perform ankle pumps and walk frequently with the walker and assistance if needed -Report calf pain, swelling, or shortness of breath immediately Followup with Orthopedics 07/05/25 at 9am with Jj Phipps PA-C Care Plan Goals: hip fracture -instruction as above,pain control with tylenol /tramadol lantus 18 units bedtime ,fs with sliding scale. Health Concerns: as above. Plan of Treatment: as above. Assessment: as above.
--- NOTE | 2025-06-25 13:31 | MHC.CM.PN ---
DP: PT HAS BEEN MEDICALLY CLEARED FOR DC TO STR AT [facility]. CENTER HAS OBTAINED INSURANCE AUTH. PROVIDER AND RN NOTIFIED. BLS TRANSPORT BOOKED FOR 3: 30 PM [facility]IA [facility]. FINAL IMM ISSUED.
[2025-06-25 15:25] VITALS: BP 143/70; PULSE 86; RESP 18; TEMP 36.6; O2SAT 98
== END 2025-06-25 15:24 | disposition skilled nursing facility (03) | DRG 522 ==
LOC: HO.ED 11:17 → HO.EDOVER 11:48 → HO.S3 06-20 10:43
PROVIDERS: Orthopaedic Surgery; Physician Assistant; Admitting Provider Internal Medicine; Emergency Provider Emergency Medicine; Visit Provider Internal Medicine
PROC: 0SRS0JA Replacement of Left Hip Joint, Femoral Surface with Synthetic Substitute, Uncemented, Open Approach (ICD-10-PCS; principal; 2025-06-20 07:30)
DX: S72.002A Fracture of unspecified part of neck of left femur, initial encounter for closed fracture (principal); W19.XXXA Unspecified fall, initial encounter; T40.605A Adverse effect of unspecified narcotics, initial encounter; R09.02 Hypoxemia; E11.65 Type 2 diabetes mellitus with hyperglycemia; Z20.822 Contact with and (suspected) exposure to COVID-19; Z79.84 Long term (current) use of oral hypoglycemic drugs
CPT/HCPCS: 36415; 71045; 72170; 73502; 80048; 80076; 81001; 82010; 82947; 83036; 83690; 83880; 84484; 85025; 85027; 85610; 86850; 86900; 86901; 87637; 88304; 88305; 88311; 93005; 97110; 97116; 97161; 97165; 97530; 97535; 99285; C1776; J0131; J0736; J0737; J1100; J1171; J1650; J2003; J2250; J2371; J2405; J2704; J2795; J3010; J7120

== ENCOUNTER → 2025-06-19 08:42 | Outpatient (BNV) | payer OTHER, SELFPAY | PROVIDERS: Emergency Provider Emergency Medicine; Visit Provider Internal Medicine Cardiovascular Disease | DX: R94.31 Abnormal electrocardiogram [ECG] [EKG] (principal); W19.XXXA Unspecified fall, initial encounter | CPT/HCPCS: 93010 ==

== ENCOUNTER → 2025-06-19 08:43 | Outpatient (BNV) | payer OTHER, SELFPAY | PROVIDERS: Emergency Provider Emergency Medicine; Visit Provider Radiology Diagnostic Radiology | DX: S72.002A Fracture of unspecified part of neck of left femur, initial encounter for closed fracture (principal); M41.35 Thoracogenic scoliosis, thoracolumbar region | CPT/HCPCS: 71045; 73502 ==

== ENCOUNTER 2025-06-19 11:47 | Outpatient (BNV) | payer OTHER, SELFPAY | END 2025-06-20 07:49 | PROVIDERS: Admitting Provider Internal Medicine; Emergency Provider Emergency Medicine; Visit Provider Radiology Diagnostic Radiology | DX: S72.042A Displaced fracture of base of neck of left femur, initial encounter for closed fracture (principal) | CPT/HCPCS: 72170 ==

== ENCOUNTER → 2025-06-19 11:47 | Outpatient (BNV) | payer OTHER, SELFPAY | PROVIDERS: Admitting Provider Internal Medicine; Emergency Provider Emergency Medicine; Visit Provider Internal Medicine | DX: S72.002A Fracture of unspecified part of neck of left femur, initial encounter for closed fracture (principal); R73.9 Hyperglycemia, unspecified | CPT/HCPCS: 99223; 99231; 99232 ==

== ENCOUNTER → 2025-06-19 11:47 | Outpatient (BNV) | payer OTHER, SELFPAY | PROVIDERS: Admitting Provider Internal Medicine; Emergency Provider Emergency Medicine; Visit Provider Physician Assistant | DX: S72.002A Fracture of unspecified part of neck of left femur, initial encounter for closed fracture (principal); Z96.642 Presence of left artificial hip joint | CPT/HCPCS: 27236; 99024; 99222 ==

== ENCOUNTER 2025-07-05 06:37 | Outpatient (REF) | payer OTHER, MEDICARE, SELFPAY ==
--- NOTE | ~2025-07-05 | XR_ITS ---
EXAMINATION: XR HIP, LEFT CLINICAL INFORMATION: M25.552 - Pain in left hip COMPARISON: None available. TECHNIQUE: AP pelvis, and 2 views of the left hip. FINDINGS: There has been a total left hip arthroplasty. Femoral and acetabular components are intact, well seated, in anatomic alignment. No periprosthetic fracture. There are overlying skin johnna. 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 The SI joints demonstrate mild degenerative changes. Sacrum is intact. There are no bone lesions. No soft tissue abnormalities. XR/XR hip LT min 2V IMPRESSION: Left hip arthroplasty without complication evident. Electronically signed by: Alcon Sr MD 07/05/2025 08:49 AM EDT
--- OUTSIDE RECORDS SUMMARY | 2025-07-05 06:40 | XMS_ITS | Clinical Summary ---
Author Organization [facility] Address [address] [place] [address] Phone Care Team Providers Care Inspector Wreath Name Role Phone Tracey-Adrianna Tyler MD Primary Care Provid er Encounters Date Type Department Care Team Description 06/26/2025 Lab Requisition [facility] - Main Lab [address] [facility] [place] [address] Liliana Duke MD Type 2 diabetes mellitus without complications (CMS/HCC V24, CMS/HCC V28) from Last 3 Months Medical History Medical History Date Comments Type II or unspecified type diabetes mellitus without mention of complication, not stated as uncontrolled 11/24/2006 DX:Type II or unspecified ty pe diabetes mellitus without mention of complication, not stated as uncontrolled Family History Medical History Relation Name Comments Mental illness Mother dementia Diabetes Paternal Grandmother Relation Name Status Comments Mother Paternal Grandmother Social History Tobacco Use Types Packs/Day Years Used Date Smoking Tobacco: Never Smokeless Tobacco: Never Alcohol Use Standard Drinks/Week Comments Not Asked 0 (1 standard drink = 0.6 oz pur e alcohol) Comments Unknown Sex and Gender Information Value Date Recorded Sex Assigned at Not on file Legal Sex Female 11:02 PM EST Gender Identity Not on file Sexual Orientation Not on file Obstetrics History Plan of Treatment Health Maintenance Due Date Last Done Comments Breast Cancer Screening 1958 Diabetes: Annual Foot Exam 1968 Diabetes: Annual Retina Eye Exam 1968 Zoster Vaccines (1 of 2) 2008 Pneumococcal Vaccine: 50+ Ye ars (2 of 2 - PCV) 07/02/2011 07/02/2010 DTaP,Tdap,and Td Vaccines (2 - Td or Tdap) 11/01/2023 11/01/2013 Depression Screening 10/31/2024 Cholesterol Screening (Lipid Panel) 06/26/2025 Colorectal Cancer Screening: Colonoscopy 06/26/2025 Diabetes: Annual Urine Albumin-Creatinine Ratio (uACR) 06/26/2025 Falls Risk Assessment 06/26/2025 Hepatitis C Screening 06/26/2025 Osteoporosis Screening (Bone Density Screening) 06/26/2025 Social Influencers of Health Screening 06/26/2025 COVID-19 Vaccine (1 - 2023-2 5 season) 2025 Influenza Vaccine (#1) 2025 Diabetes: Blood Sugar Contro l Test (HGBA1C) 12/27/2025 06/26/2025 Diabetes: Annual GFR (Glomer ular Filtration Rate) 06/26/2026 06/26/2025 Hypertension/CHF/CAD Annual BMP Blood Test 06/26/2026 06/26/2025 RSV Immunization Adult Patie nts (1 - 1-dose 75+ series) 2033 HIB Vaccines Aged Out No longer eligi ble based on patient's age to complete this topic HPV Vaccines Aged Out No longer eligi ble based on patient's age to complete this topic Hepatitis A Vaccines Aged Out No long er eligible based on patient's age to complete this topic Hepatitis B Vaccines Aged Out No long er eligible based on patient's age to complete this topic IPV Vaccines Aged Out No longer eligi ble based on patient's age to complete this topic MMR Vaccines Aged Out No longer eligi ble based on patient's age to complete this topic Meningococcal ACWY Vaccine Aged Out N o longer eligible based on patient's age to complete this topic Meningococcal B Vaccine Aged Out No l onger eligible based on patient's age to complete this topic RSV Immunization Patients Un marcia 20 months Aged Out No longer eligible b ased on patient's age to complete this topic Varicella Vaccines Aged Out No longer eligible based on patient's age to complete this topic Procedures Procedure Name Priority Date/Time Associated Diagnosis Comments HEMOGLOBIN A1C Routine 06/26/2025 9:02 AM EDT Type 2 diabetes mellitus without complications ([facility] V24, [facility] V28) BASIC METABOLIC PANEL Routine 06/26/2025 9:02 AM EDT Type 2 diabetes mellitus without complications ([facility] V24, [facility] V28) COMPLETE BLOOD COUNT Routine 06/26/2025 9:02 AM EDT Type 2 diabetes mellitus without complications ([facility] V24, [facility] V28) from Last 3 Months Results * (ABNORMAL) Complete blood count (06/26/2025 9:02 AM EDT) WBC 5.6 4.8 - 10.8 K/mcL LAB HEMETOLOGY METHOD 06/26/2025 11:06 AM [facility] RBC 4.30 3.80 - 4.80 M/mcL LAB HEMETOLOGY METHOD 06/26/2025 11:06 AM [facility] Hemoglobin 12.2 11.5 - 16.0 g/dL LAB HEMETOLOGY METHOD 06/26/2025 11:06 AM [facility] Hematocrit 37.5 35.0 - 47.0 % LAB HEMETOLOGY METHOD 06/26/2025 11:06 AM [facility] MCV 86.6 79.0 - 98.0 FL LAB HEMETOLOGY METHOD 06/26/2025 11:06 AM [facility] MCH 28.2 27.0 - 32.0 pcg LAB HEMETOLOGY METHOD 06/26/2025 11:06 AM [facility] MCHC 32.5 32.0 - 37.0 g/dL LAB HEMETOLOGY METHOD 06/26/2025 11:06 AM [facility] RDW 12.0 11.0 - 15.0 % LAB HEMETOLOGY METHOD 06/26/2025 11:06 AM [facility] Platelets 404(H) 130 - 400 K/mcL LAB HEMETOLOGY METHOD 06/26/2025 11:06 AM [facility] MPV 8.9 7.0 - 11.0 FL LAB HEMETOLOGY METHOD 06/26/2025 11:06 AM EDT [facility] NRBC 0.0 <1.0 % LAB HEMETOLOGY METHOD 06/26/2025 11:06 AM EDT [facility] NRBC Absolute 0.00 <0.10 K/mcL LAB HEMETOLOGY METHOD 06/26/2025 11:06 AM EDT [facility] Blood Venous blood specimen / Unknown Venipuncture / Unknown 06/26/2025 9:02 AM EDT 06/26/2025 10:12 AM EDT us Liliana Duke MD LAB BLOOD ORDERABLES Final Resul t Performing Organization Address City/[facility]/ZIP Co de Phone Number [facility] [address] [place] [address], * (ABNORMAL) Hemoglobin A1c (06/26/2025 9:02 AM EDT) Hemoglobin A1C 13.6(H) <6.5 % LAB CHEMISTRY METHOD 06/26/2025 1:44 PM EDT [facility] Mean Bld Glu Estim. 344 mg/dL LAB CHEMISTRY METHOD 06/26/2025 1:44 PM EDT [facility] Blood Venous blood specimen / Unknown Venipuncture / Unknown 06/26/2025 9:02 AM EDT 06/26/2025 10:12 AM EDT us Liliana Duke MD LAB BLOOD ORDERABLES Final Resul t Performing Organization Address City/[facility]/ZIP Co de Phone Number [facility] [address] [place] [address], [place] [phone] * (ABNORMAL) Basic metabolic panel (06/26/2025 9:02 AM EDT) Sodium 137 133 - 145 mmol/L LAB CHEMISTRY METHOD 06/26/2025 11:39 AM [facility] Potassium 4.4 3.5 - 5.5 mmol/L LAB CHEMISTRY METHOD 06/26/2025 11:39 AM [facility] Chloride 103 96 - 110 mmol/L LAB CHEMISTRY METHOD 06/26/2025 11:39 AM [facility] CO2 27 21 - 32 mmol/L LAB CHEMISTRY METHOD 06/26/2025 11:39 AM [facility] Anion Gap 7 3 - 11 LAB CHEMISTRY METHOD 06/26/2025 11:39 AM [facility] Glucose 230(H) 70 - 100 mg/dL LAB CHEMISTRY METHOD 06/26/2025 11:39 AM [facility] BUN 11 5 - 25 mg/dL LAB CHEMISTRY METHOD 06/26/2025 11:39 AM [facility] Creatinine 0.60 0.50 - 1.10 mg/dL LAB CHEMISTRY METHOD 06/26/2025 11:39 AM [facility] eGFR 99 >=60 mL/min/1. 73m2 LAB CHEMISTRY METHOD 06/26/2025 11:39 AM [facility] Comment:Calculation based on the Chronic Kidney Disease Epidemiology Collaboration (CKD-EPI) equation refit without adjustment for race. BUN/Creatinine Ratio 18.3 LAB CHEMISTRY METHOD 06/26/2025 11:39 AM [facility] Calcium 8.9 8.5 - 10.5 mg/dL LAB CHEMISTRY METHOD 06/26/2025 11:39 AM [facility] Blood Venous blood specimen / Unknown Venipuncture / Unknown 06/26/2025 9:02 AM EDT 06/26/2025 10:12 AM EDT us Lilinaa Duke MD LAB BLOOD ORDERABLES Final Resul t [facility] [address] [place] [address], [place] [phone] from Last 3 Months Insurance MEDICARE [employer] Care Teams Inspector Wreath Relationship Specialty Start Date End Date Tracey-Adrianna Tyler MD PCP - General 11/22/06
--- OUTSIDE RECORDS SUMMARY | 2025-07-05 06:40 | XMS_ITS | Encounter Summary ---
Author Organization [facility] Address [address] [place] [address] Care Team Providers Care Chief Librarian Circulation Department Name Role Phone Tracey-Adrianna Tyler MD Primary Care Provid er Encounter Details Date Type Department Care Team (Latest Contact Info) Description 06/26/2025 Lab Requisition [facility] - Main Lab [address] [place] [address] Liliana Duke MD [address] [place] [address] Type 2 diabetes mellitus without complications (CMS/HCC V24, CMS/[facility] V28) Social History Tobacco Use Types Packs/Day Years Used Date Smoking Tobacco: Never Smokeless Tobacco: Never Alcohol Use Standard Drinks/Week Comments Not Asked 0 (1 standard drink = 0.6 oz pur e alcohol) Comments Unknown Sex and Gender Information Value Date Recorded Sex Assigned at Not on file Legal Sex Female 11:02 PM EST Gender Identity Not on file Sexual Orientation Not on file documented as of this encounter Plan of Treatment Not on file documented as of this encounter Procedures Procedure Name Priority Date/Time Associated Diagnosis Comments COMPLETE BLOOD COUNT Routine 06/26/2025 9:02 AM EDT Type 2 diabetes mellitus without complications (CMS/HCC V24, CMS/HCC V28) HEMOGLOBIN A1C Routine 06/26/2025 9:02 AM EDT Type 2 diabetes mellitus without complications (CMS/HCC V24, CMS/HCC V28) BASIC METABOLIC PANEL Routine 06/26/2025 9:02 AM EDT Type 2 diabetes mellitus without complications (CMS/HCC V24, [facility] V28) documented in this encounter Results * (ABNORMAL) Hemoglobin A1c (06/26/2025 9:02 AM EDT) Pathologist [facility] Hemoglobin A1C 13.6(H) <6.5 % LAB CHEMISTRY METHOD 06/26/2025 1:44 PM EDT [facility] Mean Bld Glu Estim. 344 mg/dL LAB CHEMISTRY METHOD 06/26/2025 1:44 PM EDT [facility] Blood Venous blood specimen / Unknown Venipuncture / Unknown 06/26/2025 9:02 AM EDT 06/26/2025 10:12 AM EDT us Liliana Duke MD LAB BLOOD ORDERABLES Final Resul t [facility] [address] [place] [address], * (ABNORMAL) Basic metabolic panel (06/26/2025 9:02 AM EDT) [facility] Sodium 137 133 - 145 mmol/L LAB CHEMISTRY METHOD 06/26/2025 11:39 AM [facility] Potassium 4.4 3.5 - 5.5 mmol/L LAB CHEMISTRY METHOD 06/26/2025 11:39 AM [facility] Chloride 103 96 - 110 mmol/L LAB CHEMISTRY METHOD 06/26/2025 11:39 AM [facility] CO2 27 21 - 32 mmol/L LAB CHEMISTRY METHOD 06/26/2025 11:39 AM [facility] Anion Gap 7 3 - 11 LAB CHEMISTRY METHOD 06/26/2025 11:39 AM [facility] Glucose 230(H) 70 - 100 mg/dL LAB CHEMISTRY METHOD 06/26/2025 11:39 AM [facility] BUN 11 5 - 25 mg/dL LAB CHEMISTRY METHOD 06/26/2025 11:39 AM EDT [facility] Creatinine 0.60 0.50 - 1.10 mg/dL LAB CHEMISTRY METHOD 06/26/2025 11:39 AM EDT [facility] eGFR 99 >=60 mL/min/1. 73m2 LAB CHEMISTRY METHOD 06/26/2025 11:39 AM T [facility] Comment:Calculation based on the Chronic Kidney Disease Epidemiology Collaboration (CKD-EPI) equation refit without adjustment for race. BUN/Creatinine Ratio 18.3 LAB CHEMISTRY METHOD 06/26/2025 11:39 AM [facility] Calcium 8.9 8.5 - 10.5 mg/dL LAB CHEMISTRY METHOD 06/26/2025 11:39 AM [facility] Blood Venous blood specimen / Unknown Venipuncture / Unknown 06/26/2025 9:02 AM EDT 06/26/2025 10:12 AM EDT us Liliana Duke MD LAB BLOOD ORDERABLES Final Resul t [facility] [address] [place] [address], * (ABNORMAL) Complete blood count (06/26/2025 9:02 AM EDT) WBC 5.6 4.8 - 10.8 K/mcL LAB HEMETOLOGY METHOD 06/26/2025 11:06 AM EDT [facility] RBC 4.30 3.80 - 4.80 M/mcL LAB HEMETOLOGY METHOD 06/26/2025 11:06 AM EDT [facility] Hemoglobin 12.2 11.5 - 16.0 g/dL LAB HEMETOLOGY METHOD 06/26/2025 11:06 AM [facility] Hematocrit 37.5 35.0 - 47.0 % LAB HEMETOLOGY METHOD 06/26/2025 11:06 AM EDT [facility] MCV 86.6 79.0 - 98.0 FL LAB HEMETOLOGY METHOD 06/26/2025 11:06 AM EDT [facility] MCH 28.2 27.0 - 32.0 pcg LAB HEMETOLOGY METHOD 06/26/2025 11:06 AM EDT [facility] MCHC 32.5 32.0 - 37.0 g/dL LAB HEMETOLOGY METHOD 06/26/2025 11:06 AM EDT [facility] RDW 12.0 11.0 - 15.0 % LAB HEMETOLOGY METHOD 06/26/2025 11:06 AM EDT [facility] Platelets 404(H) 130 - 400 K/mcL LAB HEMETOLOGY METHOD 06/26/2025 11:06 AM EDT [facility] MPV 8.9 7.0 - 11.0 FL LAB HEMETOLOGY METHOD 06/26/2025 11:06 AM EDT [facility] NRBC 0.0 <1.0 % LAB HEMETOLOGY METHOD 06/26/2025 11:06 AM EDT [facility] NRBC Absolute 0.00 <0.10 K/mcL LAB HEMETOLOGY METHOD 06/26/2025 11:06 AM [facility] Blood Venous blood specimen / Unknown Venipuncture / Unknown 06/26/2025 9:02 AM EDT 06/26/2025 10:12 AM EDT us Liliana Duke MD LAB BLOOD ORDERABLES Final Resul t [facility] [address] [place] [address], documented in this encounter Visit Diagnoses Diagnosis Type 2 diabetes mellitus without complications (CMS/HCC V24, CMS/HCC V28) documented in this encounter Care Teams Chief Librarian Circulation Department Relationship Specialty Start Date End Date [place]-Adrianna Tyler MD PCP - General 11/22/06 documented as of this encounter
== END 2025-07-05 06:38 | disposition home or self-care (01) ==
LOC: HO.HOSX 06:37
PROVIDERS: Visit Provider Physician Assistant
DX: Z47.1 Aftercare following joint replacement surgery (principal); M25.552 Pain in left hip; Z96.642 Presence of left artificial hip joint
CPT/HCPCS: 73502

== ENCOUNTER 2025-07-05 08:35 | Outpatient (AMB) | payer OTHER, SELFPAY ==
--- NOTE | 2025-07-05 08:47 | MHC.OFFVIS ---
Intake Visit Reasons: PO- LT hip canelo, DOS 06/20/25 NE Intake Note: Winnie is a 65 year old female who presents today post operatively after undergoing a left hip canelo, DOS 06/20/25. Patient reports that she is doing well, states having a pulling sensation in her groin and a yaquelin horse feeling in her upper leg. She mentions that she is nervous that she will have a fall again. Allergies amoxicillin Allergy (Verified 07/05/25 08:54) Hives HPI HPI PO- LT hip canelo, DOS 06/20/25 NE: Details: 65-year-old female presents to the office today status post left hip hemiarthroplasty on 06/20/[address] Tyler. She was discharged from the [facility] rehab facility and has been home. She states she was not discharged with VNA services. She is currently ambulating in the office with a walker but states most of the time in the house she does not needed. No concerns today. [facility] Medical History (Updated 07/03/25 @ 00:02 by Chi Barron) Type 2 diabetes mellitus Social History Household Members: None Housing: House Do you presently have visiting nurse or other home services: No Comment: tolerable Patient Tobacco Use Status: Never used Tobacco service: No Review of Systems Const All systems reviewed & are unremarkable except as noted in HPI and below Physical Exam Const General: cooperative and no acute distress Orientation/consciousness: patient oriented x3 Resp Effort & Inspection: normal respiratory effort and able to speak in complete sentences Cardio Peripheral pulses: Peripheral pulses 2+ throughout Neuro General: patient oriented x3 Extrem Other: Left hip incision clean dry and intact. She is able to perform hip flexion and range of motion without pain. Calf supple and nontender neurovascularly intact. Results Reviewed Results Reviewed: X-rays of the left hip obtained in the office today show intact hip prosthesis. Assessment & Plan Assessment & Plan (1) Status post hemiarthroplasty of left hip: Code(s): Z96.642 - Presence of left artificial hip joint Category: Surgical Plan: [place] removed today Steri-Strips applied. The patient was given an order for physical therapy and she will decide where she would like to go. If she does want to come to our core facility she was given their information to contact them and make an appointment. She will continue with her strength and conditioning along with gait training exercises. I did give her a refill of tramadol to help with her discomfort. She will see us back in 6 weeks for repeat x-rays and evaluation, sooner if needed. Orders: Orders XR hip LT min 2V Today M25.552 - Pain in left hip PT Evaluation and Treatment Today Z96.642 - Presence of left artificial hip joint Coding Level of Care Code Global (61203) Diagnoses Status post hemiarthroplasty of left hip Z96.642
== END 2025-07-05 09:17 | disposition home or self-care (01) ==
PROVIDERS: Visit Provider Physician Assistant
DX: Z96.642 Presence of left artificial hip joint (principal)
CPT/HCPCS: 99024

== ENCOUNTER → 2025-07-05 08:36 | Outpatient (BNV) | payer OTHER, SELFPAY | PROVIDERS: Visit Provider Radiology Diagnostic Radiology | DX: M25.552 Pain in left hip (principal); Z96.642 Presence of left artificial hip joint | CPT/HCPCS: 73502 ==

== ENCOUNTER 2025-08-21 09:00 | Outpatient (RCR) | payer OTHER, SELFPAY ==
--- NOTE | 2025-07-15 16:22 | MHC.PT.EP ---
[facility] [place] [facility] [place] [facility] [place] [facility] [address] Sukhjinder Morris [address] [phone] F: [phone] F: [phone] F: [phone] F: [phone] Physical Therapy Plan of Care Date of Evaluation: 07/12/25 Date of Surgery: L hip DIXIE 06/20/25 Diagnosis: L total hip. Assessment: Pt is a 65 y/o female with Hx of DMII who is referred to PT for eval and treat of L DIXIE performed on 06/20/25 for management of traumatic fracture and her condition is resulting in decreased tolerance for sitting, and standing for duration, walking intermediate distances, negotiating stars and curbs, exiting a vehicle secondary to decreased hip ROM and strength, gait abnormality, surgical healing process, and pain. Pt is deemed an appropriate candidate to receive skilled PT services to address their physical impairments in order to improve their functional ability. Frequency and Duration: The patient will be seen 2 x/ wk x 6 wks. Short Term Goals: Initiate home program. Pt will report no longer painful with ambulation. Senior Care Goals: I with HEP. Pt will be able to walk 2 blocks with at most a little bit of difficulty; initial: quite a bit of difficulty. Pt will be able to stand > 1 hour with managed Sx; initial: unable. Improve LEFI score by at least 9 points. Treatment Plan: Modalities to reduce pain, spasms and effusion. Manual therapy to restore motion and function. Therapeutic exercise to improve strength and flexibility. Neuromuscular re-education for posture and balance. Therapeutic activities to return to functional activities of daily living. Electronically signed by: Ranjan Gold PT> Please sign and return to therapist. Thank you for your referral.
--- NOTE | 2025-10-16 08:58 | MHC.PT.DC ---
[facility] [place] Office [place] Office [place] Office [address] Sukhjinder Morris [address] [phone] F: [phone] F: [phone] F: [phone] F: [phone] Physical Therapy Discharge Report Diagnosis: L total hip. Date of Surgery: L hip DIXIE 06/20/25 Date of Evaluation: 07/12/25 Date of Discharge: 10/16/25 Treatments to Date: 13 Cancellations to Date: No Shows to Date: Discharge Status: Achieved Goals Improved Function Independent with HEP Discharge Summary: D/C to [facility]P Electronically signed by: Sabrina Chen PT DPT Please sign and return to therapist. Thank you for your referral.
== END 2025-10-16 08:58 | disposition home or self-care (01) ==
LOC: HO.PT 09:00
PROVIDERS: Visit Provider Physician Assistant
DX: Z47.1 Aftercare following joint replacement surgery (principal); Z96.642 Presence of left artificial hip joint
CPT/HCPCS: 97110; 97112; 97116; 97161; 97530

== ENCOUNTER 2025-08-21 09:47 | Outpatient (AMB) | payer OTHER, SELFPAY ==
--- NOTE | 2025-08-21 10:03 | A.OFFVIS_ITS ---
Intake Visit Reasons: PO- fu Left hip canelo 06/20-xr Intake Note: Winnie is a 65 year old female who presents today for follow up of left hip canelo, DOS 06/20/25. At her last visit she was provided with a physical therapy order, she was instructed to continue with strength, conditioning, and gait training exercises. Follow up in 6 weeks with x-rays. Patient reports that her discomfort is better than it was. She does have some pain and weakness. She continues to work with therapy. Allergies amoxicillin Allergy (Verified 08/21/25 10:06) Hives HPI HPI PO- fu Left hip canelo 06/20-xr: Details: 65-year-old female returns to the office today approximately 8 weeks from left hip hemiarthroplasty on 06/20/[address] Tyler. She is working with outpatient physical therapy and ambulating with a cane. She is currently remains out of work. [facility] Medical History (Updated 07/03/25 @ 00:02 by Chi Barron) Type 2 diabetes mellitus Social History Household Members: None Housing: House Do you presently have visiting nurse or other home services: No Comment: tolerable Patient Tobacco Use Status: Never used Tobacco service: No Review of Systems Const All systems reviewed & are unremarkable except as noted in HPI and below Physical Exam Const General: cooperative and no acute distress Orientation/consciousness: patient oriented x3 Resp Effort & Inspection: normal respiratory effort and able to speak in complete sentences Cardio Peripheral pulses: Peripheral pulses 2+ throughout Neuro General: patient oriented x3 Extrem Other: Left hip incision well healed. She is able to perform hip flexion and range of motion without pain. Calf supple and nontender neurovascularly intact. Results Reviewed Results Reviewed: X-rays of the left hip obtained in the office today show intact hip prosthesis. Assessment & Plan Assessment & Plan (1) Status post hemiarthroplasty of left hip: Code(s): Z96.642 - Presence of left artificial hip joint Category: Surgical Plan: She will continue working with physical therapy to improve her gait mechanics and work on strengthening. She will continue to remain out of work until 11/06/2025. I will see her back in 6 weeks with repeat x-rays sooner if needed. Orders: Orders XR hip LT min 2V Today M25.552 - Pain in left hip Coding Level of Care Code Global (36312) Diagnoses Status post hemiarthroplasty of left hip Z96.642
--- OUTSIDE RECORDS SUMMARY | 2025-08-21 11:34 | XMS_ITS | Clinical Summary ---
Author Organization [facility] Address [address] [place] [address] Phone Care Team Providers Care Electrical Project Engineer Name Role Phone Tracey-Adrianna Tyler MD Primary Care Provid er Encounters Date Type Department Care Team Description 06/26/2025 Lab Requisition [facility] - Main Lab [address] [facility] [place] [address] Liliana Duke MD Type 2 [...] Last Done Comments Breast Cancer Screening 1960 Colorectal Cancer Screening: Colonoscopy 1958 Diabetes: Annual Foot Exam 1968 Diabetes: Annual Retina Eye Exam 1968 Zoster Vaccines (1 of 2) 2008 Pneumococcal Vaccine: 50+ Ye ars (2 of 2 - PCV) 07/02/2011 07/02/2010 DTaP,Tdap,and Td Vaccines (2 - Td or Tdap) 11/01/2023 11/01/2013 Depression Screening 10/31/2024 Cholesterol Screening (Lipid Panel) 06/26/2025 Diabetes: Annual Urine Albumin-Creatinine Ratio (uACR) [...] EDT Type 2 diabetes mellitus without complications ([facility] V24, [facility] V28) BASIC METABOLIC PANEL Routine 06/26/2025 9:02 AM EDT Type 2 diabetes mellitus without complications ([facility] V24, [facility] V28) COMPLETE BLOOD COUNT Routine 06/26/2025 9:02 AM EDT Type 2 diabetes mellitus without complications ([facility] V24, [facility] V28) from Last 3 Months Results * (ABNORMAL) Complete blood count (06/26/2025 9:02 AM EDT) WBC 5.6 4.8 - 10.8 K/mcL LAB HEMETOLOGY METHOD 06/26/2025 11:06 AM [facility] RBC 4.30 3.80 - 4.80 M/mcL LAB HEMETOLOGY METHOD 06/26/2025 11:06 AM [facility] Hemoglobin 12.2 11.5 - 16.0 g/dL LAB HEMETOLOGY METHOD 06/26/2025 11:06 AM [facility] Hematocrit 37.5 35.0 - 47.0 % LAB HEMETOLOGY METHOD 06/26/2025 11:06 AM [facility] MCV 86.6 79.0 - 98.0 FL LAB HEMETOLOGY METHOD 06/26/2025 11:06 AM [facility] MCH 28.2 27.0 - 32.0 pcg LAB HEMETOLOGY METHOD 06/26/2025 11:06 AM [facility] MCHC 32.5 32.0 - 37.0 g/dL LAB HEMETOLOGY METHOD 06/26/2025 11:06 AM [facility] RDW 12.0 11.0 - 15.0 % LAB HEMETOLOGY METHOD 06/26/2025 11:06 AM [facility] Platelets 404(H) 130 - 400 K/mcL LAB HEMETOLOGY METHOD 06/26/2025 11:06 AM [facility] MPV 8.9 7.0 - 11.0 FL LAB HEMETOLOGY METHOD 06/26/2025 11:[address] [facility] NRBC 0.0 <1.0 % LAB HEMETOLOGY METHOD 06/26/2025 11:[address] [facility] NRBC Absolute 0.00 <0.10 K/mcL LAB HEMETOLOGY METHOD 06/26/2025 11:[address] [facility] Blood Venous blood specimen / Unknown Venipuncture / Unknown 06/26/2025 9:02 AM EDT 06/26/2025 10:12 AM EDT us Liliana Duke MD LAB BLOOD ORDERABLES Final Resul t Performing Organization Address City/[facility]/ZIP Co de Phone Number [facility] [address] [place] [address], * (ABNORMAL) Hemoglobin A1c (06/26/2025 9:02 AM EDT) Hemoglobin A1C 13.6(H) <6.5 % LAB CHEMISTRY METHOD 06/26/2025 1:[address] [facility] Mean Bld Glu Estim. 344 mg/dL LAB CHEMISTRY METHOD 06/26/2025 1:[address] [facility] Blood Venous blood specimen / Unknown Venipuncture / Unknown 06/26/2025 9:02 AM EDT 06/26/2025 10:12 AM EDT us Liliana Duke MD LAB BLOOD ORDERABLES Final Resul t Performing Organization Address City/[facility]/ZIP Co de Phone Number [facility] [address] [place] [address], [place] [phone] * (ABNORMAL) Basic metabolic panel (06/26/2025 9:02 AM EDT) Sodium 137 133 - 145 mmol/L LAB CHEMISTRY METHOD 06/26/2025 11:39 AM [facility] Potassium 4.4 3.5 - 5.5 mmol/L LAB CHEMISTRY METHOD 06/26/2025 11:39 AM [facility] Chloride 103 96 - 110 mmol/L LAB CHEMISTRY METHOD 06/26/2025 11:39 AM [facility] CO2 27 21 - 32 mmol/L LAB CHEMISTRY METHOD 06/26/2025 11:39 AM [facility] Anion Gap 7 3 - 11 LAB CHEMISTRY METHOD 06/26/2025 11:39 AM [facility] Glucose 230(H) 70 - 100 mg/dL LAB CHEMISTRY METHOD 06/26/2025 11:39 AM [facility] BUN 11 5 - 25 mg/dL LAB CHEMISTRY METHOD 06/26/2025 11:39 AM [facility] Creatinine 0.60 0.50 - 1.10 mg/dL LAB CHEMISTRY METHOD 06/26/2025 11:39 AM [facility] eGFR 99 >=60 mL/min/1. 73m2 LAB CHEMISTRY METHOD 06/26/2025 11:39 AM [facility] Comment:Calculation based on the Chronic Kidney Disease Epidemiology Collaboration (CKD-EPI) equation refit without adjustment for race. BUN/Creatinine Ratio 18.3 LAB CHEMISTRY METHOD 06/26/2025 11:39 AM [facility] Calcium 8.9 8.5 - 10.5 mg/dL LAB CHEMISTRY METHOD 06/26/2025 11:39 AM [facility] Blood Venous blood specimen / Unknown Venipuncture / Unknown 06/26/2025 9:02 AM EDT 06/26/2025 10:12 AM EDT us Liliana Duke MD LAB BLOOD ORDERABLES Final Resul t [facility] [address] [place] [address], [place] [phone] from Last 3 Months Insurance MEDICARE [employer] Care Teams Electrical Project Engineer Relationship Specialty Start Date End Date Tracey-Adrianna Tyler MD PCP - General 11/22/06
--- OUTSIDE RECORDS SUMMARY | 2025-08-21 11:35 | XMS_ITS | Encounter Summary ---
Author Organization [facility] Address [address] [place] [address] Care Team Providers Care Director Of Quality Name Role Phone Tracey-Adrianna Tyler MD Primary Care Provid er Encounter Details Date Type Department Care Team (Latest Contact Info) Description 06/26/2025 Lab Requisition [facility] - Main Lab [address] [place] [address] Liliana Duke MD [address] [place] [address] Type 2 diabetes mellitus without complications (CMS/HCC V24, CMS/[facility] V28) Social History Tobacco Use Types Packs/Day [...] 2 diabetes mellitus without complications (CMS/HCC V24, [facility] V28) documented in this encounter Results * (ABNORMAL) Hemoglobin A1c (06/26/2025 9:02 AM EDT) Pathologist [facility] Hemoglobin A1C 13.6(H) <6.5 % LAB CHEMISTRY METHOD 06/26/2025 1:44 PM EDT [facility] Mean Bld Glu Estim. 344 mg/dL LAB CHEMISTRY METHOD 06/26/2025 1:44 PM EDT [facility] Blood Venous blood specimen / Unknown Venipuncture / Unknown 06/26/2025 9:02 AM EDT 06/26/2025 10:12 AM EDT us Liliana Duke MD LAB BLOOD ORDERABLES Final Resul t [facility] [address] [place] [address], * (ABNORMAL) Basic metabolic panel (06/26/2025 9:02 AM EDT) [facility] Sodium 137 133 - 145 mmol/L LAB CHEMISTRY METHOD 06/26/2025 11:39 AM [facility] Potassium 4.4 3.5 - 5.5 mmol/L LAB CHEMISTRY METHOD 06/26/2025 11:39 AM [facility] Chloride 103 96 - 110 mmol/L LAB CHEMISTRY METHOD 06/26/2025 11:39 AM [facility] CO2 27 21 - 32 mmol/L LAB CHEMISTRY METHOD 06/26/2025 11:39 AM [facility] Anion Gap 7 3 - 11 LAB CHEMISTRY METHOD 06/26/2025 11:39 AM [facility] Glucose 230(H) 70 - 100 mg/dL LAB CHEMISTRY METHOD 06/26/2025 11:39 AM [facility] BUN 11 5 - 25 mg/dL LAB CHEMISTRY METHOD 06/26/2025 11:39 AM EDT [facility] Creatinine 0.60 0.50 - 1.10 mg/dL LAB CHEMISTRY METHOD 06/26/2025 11:39 AM EDT [facility] eGFR 99 >=60 mL/min/1. 73m2 LAB CHEMISTRY METHOD 06/26/2025 11:39 AM T [facility] Comment:Calculation based on the Chronic Kidney Disease Epidemiology Collaboration (CKD-EPI) equation refit without adjustment for race. BUN/Creatinine Ratio 18.3 LAB CHEMISTRY METHOD 06/26/2025 11:39 AM [facility] Calcium 8.9 8.5 - 10.5 mg/dL LAB CHEMISTRY METHOD 06/26/2025 11:39 AM [facility] Blood Venous blood specimen / Unknown Venipuncture / Unknown 06/26/2025 9:02 AM EDT 06/26/2025 10:12 AM EDT us Liliana Duke MD LAB BLOOD ORDERABLES Final Resul t [facility] [address] [place] [address], * (ABNORMAL) Complete blood count (06/26/2025 9:02 AM EDT) WBC 5.6 4.8 - 10.8 K/mcL LAB HEMETOLOGY METHOD 06/26/2025 11:06 AM EDT [facility] RBC 4.30 3.80 - 4.80 M/mcL LAB HEMETOLOGY METHOD 06/26/2025 11:06 AM EDT [facility] Hemoglobin 12.2 11.5 - 16.0 g/dL LAB HEMETOLOGY METHOD 06/26/2025 11:06 AM [facility] Hematocrit 37.5 35.0 - 47.0 % LAB HEMETOLOGY METHOD 06/26/2025 11:06 AM EDT [facility] MCV 86.6 79.0 - 98.0 FL LAB HEMETOLOGY METHOD 06/26/2025 11:06 AM EDT [facility] MCH 28.2 27.0 - 32.0 pcg LAB HEMETOLOGY METHOD 06/26/2025 11:06 AM EDT [facility] MCHC 32.5 32.0 - 37.0 g/dL LAB HEMETOLOGY METHOD 06/26/2025 11:06 AM EDT [facility] RDW 12.0 11.0 - 15.0 % LAB HEMETOLOGY METHOD 06/26/2025 11:06 AM EDT [facility] Platelets 404(H) 130 - 400 K/mcL LAB HEMETOLOGY METHOD 06/26/2025 11:06 AM EDT [facility] MPV 8.9 7.0 - 11.0 FL LAB HEMETOLOGY METHOD 06/26/2025 11:06 AM EDT [facility] NRBC 0.0 <1.0 % LAB HEMETOLOGY METHOD 06/26/2025 11:06 AM EDT [facility] NRBC Absolute 0.00 <0.10 K/mcL LAB HEMETOLOGY METHOD 06/26/2025 11:06 AM [facility] Blood Venous blood specimen / Unknown Venipuncture / Unknown 06/26/2025 9:02 AM EDT 06/26/2025 10:12 AM EDT us Liliana Duke MD LAB BLOOD ORDERABLES Final Resul t [facility] [address] [place] [address], documented in this encounter Visit Diagnoses Diagnosis Type 2 diabetes mellitus without complications (CMS/HCC V24, CMS/HCC V28) documented in this encounter Care Teams Director Of Quality Relationship Specialty Start Date End Date [place]-Adrianna Tyler MD PCP - General 11/22/06 documented as of this encounter
== END 2025-08-21 11:05 | disposition home or self-care (01) ==
LOC: HO.HOS 09:48
PROVIDERS: Visit Provider Physician Assistant
DX: Z96.642 Presence of left artificial hip joint (principal)
CPT/HCPCS: 99024

== ENCOUNTER → 2025-08-21 09:51 | Outpatient (BNV) | payer OTHER, SELFPAY | PROVIDERS: Visit Provider Radiology Diagnostic Radiology | DX: M25.552 Pain in left hip (principal); Z96.642 Presence of left artificial hip joint | CPT/HCPCS: 73502 ==

== ENCOUNTER 2025-08-21 11:55 | Outpatient (REF) | payer OTHER, SELFPAY ==
--- NOTE | ~2025-08-21 | XR_ITS ---
CLINICAL HISTORY: M25.552 - Pain in left hip AP pelvis, 2 views left hip Comparison: 07/05/2025 Findings: The right femoroacetabular joint is mildly narrowed. There is a left hip arthroplasty in satisfactory alignment with normal acetabular angle. No displacement of hardware. No fractures or dislocations. The sacrum and sacroiliac joints are unremarkable. Impression: Unremarkable left hip arthroplasty with no displacement of hardware. No acute skeletal abnormality. This document has been electronically signed by: Negro Mccarthy MD on 08/22/2025 17:37:16
--- OUTSIDE RECORDS SUMMARY | 2025-08-22 15:10 | XMS_ITS | Encounter Summary ---
Author Organization [facility] Address [address] [place] [address] Care Team Providers Care Musician Instrumental Name Role Phone Tracey-Adrianna Tyler MD Primary Care Provid er Encounter Details Date Type Department Care Team (Latest Contact Info) Description 06/26/2025 Lab Requisition [facility] - Main Lab [address] [place] [address] Liliana Duke MD [address] [place] [address] Type 2 diabetes mellitus without complications (CMS/HCC V24, CMS/[facility] V28) Social History Tobacco Use [...] 2 diabetes mellitus without complications (CMS/HCC V24, [facility] V28) documented in this encounter Results * (ABNORMAL) Hemoglobin A1c (06/26/2025 9:02 AM EDT) Pathologist [facility] Hemoglobin A1C 13.6(H) <6.5 % LAB CHEMISTRY METHOD 06/26/2025 1:44 PM EDT [facility] Mean Bld Glu Estim. 344 mg/dL LAB CHEMISTRY METHOD 06/26/2025 1:44 PM EDT [facility] Blood Venous blood specimen / Unknown Venipuncture / Unknown 06/26/2025 9:02 AM EDT 06/26/2025 10:12 AM EDT us Liliana Duke MD LAB BLOOD ORDERABLES Final Resul t [facility] [address] [place] [address], * (ABNORMAL) Basic metabolic panel (06/26/2025 9:02 AM EDT) [facility] Sodium 137 133 - 145 mmol/L LAB CHEMISTRY METHOD 06/26/2025 11:39 AM [facility] Potassium 4.4 3.5 - 5.5 mmol/L LAB CHEMISTRY METHOD 06/26/2025 11:39 AM [facility] Chloride 103 96 - 110 mmol/L LAB CHEMISTRY METHOD 06/26/2025 11:39 AM [facility] CO2 27 21 - 32 mmol/L LAB CHEMISTRY METHOD 06/26/2025 11:39 AM [facility] Anion Gap 7 3 - 11 LAB CHEMISTRY METHOD 06/26/2025 11:39 AM [facility] Glucose 230(H) 70 - 100 mg/dL LAB CHEMISTRY METHOD 06/26/2025 11:39 AM [facility] BUN 11 5 - 25 mg/dL LAB CHEMISTRY METHOD 06/26/2025 11:39 AM EDT [facility] Creatinine 0.60 0.50 - 1.10 mg/dL LAB CHEMISTRY METHOD 06/26/2025 11:39 AM EDT [facility] eGFR 99 >=60 mL/min/1. 73m2 LAB CHEMISTRY METHOD 06/26/2025 11:39 AM T [facility] Comment:Calculation based on the Chronic Kidney Disease Epidemiology Collaboration (CKD-EPI) equation refit without adjustment for race. BUN/Creatinine Ratio 18.3 LAB CHEMISTRY METHOD 06/26/2025 11:39 AM [facility] Calcium 8.9 8.5 - 10.5 mg/dL LAB CHEMISTRY METHOD 06/26/2025 11:39 AM [facility] Blood Venous blood specimen / Unknown Venipuncture / Unknown 06/26/2025 9:02 AM EDT 06/26/2025 10:12 AM EDT us Liliana Duke MD LAB BLOOD ORDERABLES Final Resul t [facility] [address] [place] [address], * (ABNORMAL) Complete blood count (06/26/2025 9:02 AM EDT) WBC 5.6 4.8 - 10.8 K/mcL LAB HEMETOLOGY METHOD 06/26/2025 11:06 AM EDT [facility] RBC 4.30 3.80 - 4.80 M/mcL LAB HEMETOLOGY METHOD 06/26/2025 11:06 AM EDT [facility] Hemoglobin 12.2 11.5 - 16.0 g/dL LAB HEMETOLOGY METHOD 06/26/2025 11:06 AM [facility] Hematocrit 37.5 35.0 - 47.0 % LAB HEMETOLOGY METHOD 06/26/2025 11:06 AM EDT [facility] MCV 86.6 79.0 - 98.0 FL LAB HEMETOLOGY METHOD 06/26/2025 11:06 AM EDT [facility] MCH 28.2 27.0 - 32.0 pcg LAB HEMETOLOGY METHOD 06/26/2025 11:06 AM EDT [facility] MCHC 32.5 32.0 - 37.0 g/dL LAB HEMETOLOGY METHOD 06/26/2025 11:06 AM EDT [facility] RDW 12.0 11.0 - 15.0 % LAB HEMETOLOGY METHOD 06/26/2025 11:06 AM EDT [facility] Platelets 404(H) 130 - 400 K/mcL LAB HEMETOLOGY METHOD 06/26/2025 11:06 AM EDT [facility] MPV 8.9 7.0 - 11.0 FL LAB HEMETOLOGY METHOD 06/26/2025 11:06 AM EDT [facility] NRBC 0.0 <1.0 % LAB HEMETOLOGY METHOD 06/26/2025 11:06 AM EDT [facility] NRBC Absolute 0.00 <0.10 K/mcL LAB HEMETOLOGY METHOD 06/26/2025 11:06 AM [facility] Blood Venous blood specimen / Unknown Venipuncture / Unknown 06/26/2025 9:02 AM EDT 06/26/2025 10:12 AM EDT us Liliana Duke MD LAB BLOOD ORDERABLES Final Resul t [facility] [address] [place] [address], documented in this encounter Visit Diagnoses Diagnosis Type 2 diabetes mellitus without complications (CMS/HCC V24, CMS/HCC V28) documented in this encounter Care Teams Musician Instrumental Relationship Specialty Start Date End Date Hinckley-Adrianna Tyler MD PCP - General 11/22/06 documented as of this encounter
--- OUTSIDE RECORDS SUMMARY | 2025-08-22 15:10 | XMS_ITS | Clinical Summary ---
Author Organization [address] [facility] Address [address] [place] [address] Phone Care Team Providers Care Golf Caddie Name Role Phone Tracey-Adrianna Tyler MD Primary Care Provid er Encounters Date Type Department Care Team Description 06/26/[address] [facility] - Main Lab [address] [facility] [employer] [place] [address] Liliana Duke MD Type 2 [...] EDT Type 2 diabetes mellitus without complications ([facility] V24, [facility] V28) BASIC METABOLIC PANEL Routine 06/26/2025 9:02 AM EDT Type 2 diabetes mellitus without complications ([facility] V24, [facility] V28) COMPLETE BLOOD COUNT Routine 06/26/2025 9:02 AM EDT Type 2 diabetes mellitus without complications ([facility] V24, [facility] V28) from Last 3 Months Results * (ABNORMAL) Complete blood count (06/26/2025 9:02 AM EDT) WBC 5.6 4.8 - 10.8 K/mcL LAB HEMETOLOGY METHOD 06/26/2025 11:06 AM [facility] RBC 4.30 3.80 - 4.80 M/mcL LAB HEMETOLOGY METHOD 06/26/2025 11:06 AM [facility] Hemoglobin 12.2 11.5 - 16.0 g/dL LAB HEMETOLOGY METHOD 06/26/2025 11:06 AM [facility] Hematocrit 37.5 35.0 - 47.0 % LAB HEMETOLOGY METHOD 06/26/2025 11:06 AM [facility] MCV 86.6 79.0 - 98.0 FL LAB HEMETOLOGY METHOD 06/26/2025 11:06 AM [facility] MCH 28.2 27.0 - 32.0 pcg LAB HEMETOLOGY METHOD 06/26/2025 11:06 AM [facility] MCHC 32.5 32.0 - 37.0 g/dL LAB HEMETOLOGY METHOD 06/26/2025 11:06 AM [facility] RDW 12.0 11.0 - 15.0 % LAB HEMETOLOGY METHOD 06/26/2025 11:06 AM [facility] Platelets 404(H) 130 - 400 K/mcL LAB HEMETOLOGY METHOD 06/26/2025 11:06 AM [facility] MPV 8.9 7.0 - 11.0 FL LAB HEMETOLOGY METHOD 06/26/2025 11:06 AM EDT [facility] NRBC 0.0 <1.0 % LAB HEMETOLOGY METHOD 06/26/2025 11:06 AM EDT [facility] NRBC Absolute 0.00 <0.10 K/mcL LAB HEMETOLOGY METHOD 06/26/2025 11:06 AM EDT [facility] Blood Venous blood specimen / Unknown Venipuncture / Unknown 06/26/2025 9:02 AM EDT 06/26/2025 10:12 AM EDT us Liliana Duke MD LAB BLOOD ORDERABLES Final Resul t Performing Organization Address City/[facility]/ZIP Co de Phone Number [facility] [address] [place] [address], * (ABNORMAL) Hemoglobin A1c (06/26/2025 9:02 AM [...] ORDERABLES Final Resul t Performing Organization Address City/[facility]/ZIP Co de Phone Number [facility] [address] [place] [address], [place] [phone] * (ABNORMAL) Basic metabolic panel (06/26/2025 9:02 AM EDT) Sodium 137 133 - 145 mmol/L LAB CHEMISTRY METHOD 06/26/2025 11:39 AM [facility] Potassium 4.4 3.5 - 5.5 mmol/L LAB CHEMISTRY METHOD 06/26/2025 11:39 AM [facility] Chloride 103 96 - 110 mmol/L LAB CHEMISTRY METHOD 06/26/2025 11:39 AM [facility] CO2 27 21 - 32 mmol/L LAB CHEMISTRY METHOD 06/26/2025 11:39 AM [facility] Anion Gap 7 3 - 11 LAB CHEMISTRY METHOD 06/26/2025 11:39 AM [facility] Glucose 230(H) 70 - 100 mg/dL LAB CHEMISTRY METHOD 06/26/2025 11:39 AM [facility] BUN 11 5 - 25 mg/dL LAB CHEMISTRY METHOD 06/26/2025 11:39 AM [facility] Creatinine 0.60 0.50 - 1.10 mg/dL LAB CHEMISTRY METHOD 06/26/2025 11:39 AM [facility] eGFR 99 >=60 mL/min/1. 73m2 LAB CHEMISTRY METHOD 06/26/2025 11:39 AM [facility] Comment:Calculation based on the Chronic Kidney Disease Epidemiology Collaboration (CKD-EPI) equation refit without adjustment for race. BUN/Creatinine Ratio 18.3 LAB CHEMISTRY METHOD 06/26/2025 11:39 AM [facility] Calcium 8.9 8.5 - 10.5 mg/dL LAB CHEMISTRY METHOD 06/26/2025 11:39 AM [facility] Blood Venous blood specimen / Unknown Venipuncture / Unknown 06/26/2025 9:02 AM EDT 06/26/2025 10:12 AM EDT us Liliana Duke MD LAB BLOOD ORDERABLES Final Resul t [facility] [address] [place] [address], [place] [phone] from Last 3 Months Insurance MEDICARE [employer] Care Teams Golf Caddie Relationship Specialty Start Date End Date Tracey-Adrianna Tyler MD PCP - General 11/22/06
== END 2025-08-21 11:56 | disposition home or self-care (01) ==
LOC: HO.HOSX 11:55
PROVIDERS: Visit Provider Physician Assistant
DX: Z47.1 Aftercare following joint replacement surgery (principal); Z96.642 Presence of left artificial hip joint
CPT/HCPCS: 73502

== ENCOUNTER 2025-10-02 09:55 | Outpatient (AMB) | payer OTHER, SELFPAY ==
--- NOTE | 2025-10-02 09:57 | MHC.OFFVIS ---
Intake Visit Reasons: PO - Left Hip Aiden 06/20/2025 Intake Note: Winnie is a 65 year old female who presents today for a follow up status post left hip aiden, performed by Dr. Tyler on 06/20/25. Patient reports mild soreness in the left hip and thigh area. She feels this may be from possibly doing too much. She has discontinue use of ambulation devices since July. Allergies amoxicillin Allergy (Verified 10/02/25 10:13) Hives Medication List - Last Reconciled 10/02/25 by Jj Phipps PA-C acetaminophen 975 mg (3 x 325 mg) PO Q6H PRN HPI HPI PO - Left Hip Aiden 06/20/2025: Details: 65-year-old female returns to the office today status post left hip hemiarthroplasty on 06/20/[address] Tyler. She is doing significantly well and has been returning to almost normal activity which includes frequent walking. She complains of mild discomfort in the anterior portion of her thigh which may be associated with overuse. She currently remains out of work. [facility] Medical History (Updated 07/03/25 @ 00:02 by Chi Barron) Type 2 diabetes mellitus Social History Household Members: None Housing: House Do you presently have visiting nurse or other home services: No Comment: tolerable Patient Tobacco Use Status: Never used Tobacco service: No Review of Systems Const All systems reviewed & are unremarkable except as noted in HPI and below Physical Exam Const General: cooperative and no acute distress Orientation/consciousness: patient oriented x3 Resp Effort & Inspection: normal respiratory effort and able to speak in complete sentences Cardio Peripheral pulses: Peripheral pulses 2+ throughout Neuro General: patient oriented x3 Extrem Other: Left hip incision well healed. She is able to perform hip flexion and range of motion without pain. Calf supple and nontender neurovascularly intact. Results Reviewed Results Reviewed: X-rays of the left hip obtained in the office today show intact hip prosthesis. Assessment & Plan Assessment & Plan (1) Status post hemiarthroplasty of left hip: Code(s): Z96.642 - Presence of left artificial hip joint Category: Surgical Plan: The patient will continue working on strengthening conditioning exercises. We did review some activities such as jumping on a trampoline and skiing which I explained would put her at a high risk for fracture/dislocations. She does express understanding and will avoid activities that pose significant risk. She currently remains out of work and will contact me to further discuss her return to work options after speaking with her employer. She does not need to return unless there is any questions or concerns otherwise she will follow up as needed. Orders: Orders XR hip LT min 2V Today M25.552 - Pain in left hip Coding Level of Care Code Complex visit Add On G2211 Diagnoses Status post hemiarthroplasty of left hip Z96.642
--- OUTSIDE RECORDS SUMMARY | 2025-10-02 11:11 | XMS_ITS | Clinical Summary ---
Author Organization [address] Address [address] [place] [phone] Phone Care Team Providers Care Commercial Instructor Supervisor Name Role Phone Adrianna Jimenez MD Primary Care Provid er Medical History Medical History Date Comments Type [...] Health Screening 06/26/2025 COVID-19 Vaccine (1 - 2024-2 6 season) 2025 Influenza Vaccine (#1) 2025 Diabetes: [...] Procedure Name Priority Date/Time Associated Diagnosis Comments BASIC METABOLIC PANEL Routine 06/26/2025 9:02 AM EDT Type 2 diabetes mellitus without complications (CMS/HCC V24, CMS/HCC V28) HEMOGLOBIN A1C Routine 06/26/2025 9:02 AM EDT Type 2 diabetes mellitus without complications (CMS/HCC V24, CMS/HCC V28) from Last 3 Months or Most Recently Relevant to Health Maintenance Results * (ABNORMAL) Hemoglobin A1c (06/26/2025 9:02 AM EDT) Hemoglobin A1C 13.6(H) <6.5 % LAB CHEMISTRY METHOD 06/26/2025 1:44 PM [facility] Mean Bld Glu Estim. 344 mg/dL LAB CHEMISTRY METHOD 06/26/2025 1:44 PM [facility] Blood Venous blood specimen / Unknown Venipuncture / Unknown 06/26/2025 9:02 AM EDT 06/26/2025 10:12 AM EDT Liliana Duke MD LAB BLOOD ORDERABLES Final Resul t [facility] [address] [place] [address], * (ABNORMAL) Basic metabolic panel (06/26/2025 9:02 AM EDT) [facility] Sodium 137 133 - 145 mmol/L LAB CHEMISTRY METHOD 06/26/2025 11:39 AM [facility] Potassium 4.4 3.5 - 5.5 mmol/L LAB CHEMISTRY METHOD 06/26/2025 11:39 AM [facility] Chloride 103 96 - 110 mmol/L LAB CHEMISTRY METHOD 06/26/2025 11:39 AM [facility] CO2 27 21 - 32 mmol/L LAB CHEMISTRY METHOD 06/26/2025 11:39 AM [facility] Anion Gap 7 3 - 11 LAB CHEMISTRY METHOD 06/26/2025 11:39 AM [facility] Glucose 230(H) 70 - 100 mg/dL LAB CHEMISTRY METHOD 06/26/2025 11:39 AM [facility] BUN 11 5 - 25 mg/dL LAB CHEMISTRY METHOD 06/26/2025 11:39 AM [facility] Creatinine 0.60 0.50 - 1.10 mg/dL LAB CHEMISTRY METHOD 06/26/2025 11:39 AM [facility] eGFR 99 >=60 mL/min/1. 73m2 LAB CHEMISTRY METHOD 06/26/2025 11:39 AM EDT [facility] Comment:Calculation based on the Chronic Kidney Disease Epidemiology Collaboration (CKD-EPI) equation refit without adjustment for race. BUN/Creatinine Ratio 18.3 LAB CHEMISTRY METHOD 06/26/2025 11:39 AM EDT [facility] Calcium 8.9 8.5 - 10.5 mg/dL LAB CHEMISTRY METHOD 06/26/2025 11:39 AM EDT [facility] Blood Venous blood specimen / Unknown Venipuncture / Unknown 06/26/2025 9:02 AM EDT 06/26/2025 10:12 AM EDT us Liliana Duke MD LAB BLOOD ORDERABLES Final Resul t [facility] [address] [place] [address], from Last 3 Months or Most Recently Relevant to Health Maintenance Insurance MEDICARE [employer] Care Teams Commercial Instructor Supervisor Relationship Specialty Start Date End Date Tracey-Adrianna Tyler MD PCP - General 11/22/06
--- OUTSIDE RECORDS SUMMARY | 2025-10-02 11:11 | XMS_ITS | Encounter Summary ---
Author Organization [facility] Address [address] [place] [address] Care Team Providers Care On Site Coordinator Name Role Phone Tracey-Adrianna Tyler MD Primary Care Provid er Encounter Details Date Type Department Care Team (Latest Contact Info) Description 06/26/2025 Lab Requisition [facility] - Main Lab [address] [place] [address] Liliana Duke MD [address] [place] [address] Type 2 diabetes mellitus without complications (CMS/HCC V24, [facility] V28) Social History Tobacco Use Types Packs/Day [...] 2 diabetes mellitus without complications (CMS/HCC V24, [facility] V28) documented in this encounter Results * (ABNORMAL) Hemoglobin A1c (06/26/2025 9:02 AM EDT) Pathologist [facility] Hemoglobin A1C 13.6(H) <6.5 % LAB CHEMISTRY METHOD 06/26/2025 1:44 PM EDT [facility] Mean Bld Glu Estim. 344 mg/dL LAB CHEMISTRY METHOD 06/26/2025 1:44 PM EDT [facility] Blood Venous blood specimen / Unknown Venipuncture / Unknown 06/26/2025 9:02 AM EDT 06/26/2025 10:12 AM EDT us Liliana Duke MD LAB BLOOD ORDERABLES Final Resul t [facility] [address] [place] [address], * (ABNORMAL) Basic metabolic panel (06/26/2025 9:02 AM EDT) [facility] Sodium 137 133 - 145 mmol/L LAB CHEMISTRY METHOD 06/26/2025 11:[address] [facility] Potassium 4.4 3.5 - 5.5 mmol/L LAB CHEMISTRY METHOD 06/26/2025 11:[address] [facility] Chloride 103 96 - 110 mmol/L LAB CHEMISTRY METHOD 06/26/2025 11:[address] [facility] CO2 27 21 - 32 mmol/L LAB CHEMISTRY METHOD 06/26/2025 11:[address] [facility] Anion Gap 7 3 - 11 LAB CHEMISTRY METHOD 06/26/2025 11:[address] [facility] Glucose 230(H) 70 - 100 mg/dL LAB CHEMISTRY METHOD 06/26/2025 11:[address] [facility] BUN 11 5 - 25 mg/dL LAB CHEMISTRY METHOD 06/26/2025 11:39 AM EDT [facility] Creatinine 0.60 0.50 - 1.10 mg/dL LAB CHEMISTRY METHOD 06/26/2025 11:39 AM EDT [facility] eGFR 99 >=60 mL/min/1. 73m2 LAB CHEMISTRY METHOD 06/26/2025 11:39 AM T [facility] Comment:Calculation based on the Chronic Kidney Disease Epidemiology Collaboration (CKD-EPI) equation refit without adjustment for race. BUN/Creatinine Ratio 18.3 LAB CHEMISTRY METHOD 06/26/2025 11:[address] [facility] Calcium 8.9 8.5 - 10.5 mg/dL LAB CHEMISTRY METHOD 06/26/2025 11:[address] [facility] Blood Venous blood specimen / Unknown Venipuncture / Unknown 06/26/2025 9:02 AM EDT 06/26/2025 10:12 AM EDT us Liliana Duke MD LAB BLOOD ORDERABLES Final Resul t [facility] [address] [place] [address], * (ABNORMAL) Complete blood count (06/26/2025 9:02 AM EDT) WBC 5.6 4.8 - 10.8 K/mcL LAB HEMETOLOGY METHOD 06/26/2025 11:06 AM EDT [facility] RBC 4.30 3.80 - 4.80 M/mcL LAB HEMETOLOGY METHOD 06/26/2025 11:06 AM EDT [facility] Hemoglobin 12.2 11.5 - 16.0 g/dL LAB HEMETOLOGY METHOD 06/26/2025 11:[address] [facility] Hematocrit 37.5 35.0 - 47.0 % LAB HEMETOLOGY METHOD 06/26/2025 11:06 AM EDT [facility] MCV 86.6 79.0 - 98.0 FL LAB HEMETOLOGY METHOD 06/26/2025 11:06 AM EDT [facility] MCH 28.2 27.0 - 32.0 pcg LAB HEMETOLOGY METHOD 06/26/2025 11:06 AM EDT [facility] MCHC 32.5 32.0 - 37.0 g/dL LAB HEMETOLOGY METHOD 06/26/2025 11:06 AM EDT [facility] RDW 12.0 11.0 - 15.0 % LAB HEMETOLOGY METHOD 06/26/2025 11:06 AM EDT [facility] Platelets 404(H) 130 - 400 K/mcL LAB HEMETOLOGY METHOD 06/26/2025 11:06 AM EDT [facility] MPV 8.9 7.0 - 11.0 FL LAB HEMETOLOGY METHOD 06/26/2025 11:06 AM EDT [facility] NRBC 0.0 <1.0 % LAB HEMETOLOGY METHOD 06/26/2025 11:06 AM EDT [facility] NRBC Absolute 0.00 <0.10 K/mcL LAB HEMETOLOGY METHOD 06/26/2025 11:[address] [facility] Blood Venous blood specimen / Unknown Venipuncture / Unknown 06/26/2025 9:02 AM EDT 06/26/2025 10:12 AM EDT us Liliana Duke MD LAB BLOOD ORDERABLES Final Resul t [facility] [address] [place] [address], documented in this encounter Visit Diagnoses Diagnosis Type 2 diabetes mellitus without complications (CMS/HCC V24, CMS/HCC V28) documented in this encounter Care Teams On Site Coordinator Relationship Specialty Start Date End Date Barnum-Adrianna Tyler MD PCP - General 11/22/06 documented as of this encounter
== END 2025-10-02 10:32 | disposition home or self-care (01) ==
LOC: HO.HOS 09:56
PROVIDERS: Visit Provider Physician Assistant
DX: Z47.89 Encounter for other orthopedic aftercare (principal); Z96.642 Presence of left artificial hip joint
CPT/HCPCS: 99213; G2211

== ENCOUNTER → 2025-10-02 09:58 | Outpatient (BNV) | payer OTHER, SELFPAY | PROVIDERS: Visit Provider Radiology Diagnostic Ultrasound | DX: M25.552 Pain in left hip (principal) | CPT/HCPCS: 73502 ==

== ENCOUNTER 2025-10-02 10:33 | Outpatient (REF) | payer OTHER, SELFPAY ==
--- NOTE | ~2025-10-02 | XR_ITS ---
EXAMINATION: XR HIP, LEFT CLINICAL INFORMATION: M25.552 - Pain in left hip COMPARISON: X-ray 08/21/2025 TECHNIQUE: Two views of the left hip. Pelvis 1 view FINDINGS: Left hip arthroplasty in stable position and alignment. No acute periprosthetic fracture. No suspicious perihardware lucency. Right hip joint space is maintained. SI joints and symphysis pubis intact. No acute pelvic fracture seen. No suspicious soft tissue calcification. XR/XR hip LT min 2V IMPRESSION: Left hip arthroplasty, stable in appearance. No acute periprosthetic fractures. No findings to suggest hardware failure. Electronically signed by: Sumeet Emerson MD 10/02/2025 03:02 PM [facility]
--- OUTSIDE RECORDS SUMMARY | 2025-10-03 13:04 | XMS_ITS | Encounter Summary ---
Author Organization [facility] Address [address] [place] [address] Care Team Providers Care Fisher Lobster Name Role Phone Tracey-Adrianna Tyler MD Primary Care Provid er Encounter Details Date Type Department Care Team (Latest Contact Info) Description 06/26/2025 Lab Requisition [facility] - Main Lab [address] [place] [address] Liliana Duke MD [address] [place] [address] Type 2 diabetes mellitus without complications (CMS/HCC V24, CMS/[facility] V28) Social History Tobacco Use Types [...] 2 diabetes mellitus without complications (CMS/HCC V24, [facility] V28) documented in this encounter Results * (ABNORMAL) Hemoglobin A1c (06/26/2025 9:02 AM EDT) Pathologist [facility] Hemoglobin A1C 13.6(H) <6.5 % LAB CHEMISTRY METHOD 06/26/2025 1:44 PM EDT [facility] Mean Bld Glu Estim. 344 mg/dL LAB CHEMISTRY METHOD 06/26/2025 1:44 PM EDT [facility] Blood Venous blood specimen / Unknown Venipuncture / Unknown 06/26/2025 9:02 AM EDT 06/26/2025 10:12 AM EDT us Liliana Duke MD LAB BLOOD ORDERABLES Final Resul t [facility] [address] [place] [address], * (ABNORMAL) Basic metabolic panel (06/26/2025 9:02 AM EDT) [facility] Sodium 137 133 - 145 mmol/L LAB CHEMISTRY METHOD 06/26/2025 11:39 AM [facility] Potassium 4.4 3.5 - 5.5 mmol/L LAB CHEMISTRY METHOD 06/26/2025 11:39 AM [facility] Chloride 103 96 - 110 mmol/L LAB CHEMISTRY METHOD 06/26/2025 11:39 AM [facility] CO2 27 21 - 32 mmol/L LAB CHEMISTRY METHOD 06/26/2025 11:39 AM [facility] Anion Gap 7 3 - 11 LAB CHEMISTRY METHOD 06/26/2025 11:39 AM [facility] Glucose 230(H) 70 - 100 mg/dL LAB CHEMISTRY METHOD 06/26/2025 11:39 AM [facility] BUN 11 5 - 25 mg/dL LAB CHEMISTRY METHOD 06/26/2025 11:39 AM EDT [facility] Creatinine 0.60 0.50 - 1.10 mg/dL LAB CHEMISTRY METHOD 06/26/2025 11:39 AM EDT [facility] eGFR 99 >=60 mL/min/1. 73m2 LAB CHEMISTRY METHOD 06/26/2025 11:39 AM T [facility] Comment:Calculation based on the Chronic Kidney Disease Epidemiology Collaboration (CKD-EPI) equation refit without adjustment for race. BUN/Creatinine Ratio 18.3 LAB CHEMISTRY METHOD 06/26/2025 11:39 AM [facility] Calcium 8.9 8.5 - 10.5 mg/dL LAB CHEMISTRY METHOD 06/26/2025 11:39 AM [facility] Blood Venous blood specimen / Unknown Venipuncture / Unknown 06/26/2025 9:02 AM EDT 06/26/2025 10:12 AM EDT us Liliana Duke MD LAB BLOOD ORDERABLES Final Resul t [facility] [address] [place] [address], * (ABNORMAL) Complete blood count (06/26/2025 9:02 AM EDT) WBC 5.6 4.8 - 10.8 K/mcL LAB HEMETOLOGY METHOD 06/26/2025 11:06 AM EDT [facility] RBC 4.30 3.80 - 4.80 M/mcL LAB HEMETOLOGY METHOD 06/26/2025 11:06 AM EDT [facility] Hemoglobin 12.2 11.5 - 16.0 g/dL LAB HEMETOLOGY METHOD 06/26/2025 11:06 AM [facility] Hematocrit 37.5 35.0 - 47.0 % LAB HEMETOLOGY METHOD 06/26/2025 11:06 AM EDT [facility] MCV 86.6 79.0 - 98.0 FL LAB HEMETOLOGY METHOD 06/26/2025 11:06 AM EDT [facility] MCH 28.2 27.0 - 32.0 pcg LAB HEMETOLOGY METHOD 06/26/2025 11:06 AM EDT [facility] MCHC 32.5 32.0 - 37.0 g/dL LAB HEMETOLOGY METHOD 06/26/2025 11:06 AM EDT [facility] RDW 12.0 11.0 - 15.0 % LAB HEMETOLOGY METHOD 06/26/2025 11:06 AM EDT [facility] Platelets 404(H) 130 - 400 K/mcL LAB HEMETOLOGY METHOD 06/26/2025 11:06 AM EDT [facility] MPV 8.9 7.0 - 11.0 FL LAB HEMETOLOGY METHOD 06/26/2025 11:06 AM EDT [facility] NRBC 0.0 <1.0 % LAB HEMETOLOGY METHOD 06/26/2025 11:06 AM EDT [facility] NRBC Absolute 0.00 <0.10 K/mcL LAB HEMETOLOGY METHOD 06/26/2025 11:06 AM [facility] Blood Venous blood specimen / Unknown Venipuncture / Unknown 06/26/2025 9:02 AM EDT 06/26/2025 10:12 AM EDT us Liliana Duke MD LAB BLOOD ORDERABLES Final Resul t [facility] [address] [place] [address], documented in this encounter Visit Diagnoses Diagnosis Type 2 diabetes mellitus without complications (CMS/HCC V24, CMS/HCC V28) documented in this encounter Care Teams Fisher Lobster Relationship Specialty Start Date End Date [place]-Adrianna Tyler MD PCP - General 11/22/06 documented as of this encounter
--- OUTSIDE RECORDS SUMMARY | 2025-10-03 13:04 | XMS_ITS | Clinical Summary ---
Author Organization [address] Address [address] [place] [phone] Phone Care Team Providers Care Mutton Puncher Name Role Phone Adrianna Jimenez MD Primary [...] % LAB CHEMISTRY METHOD 06/26/2025 1:44 PM [facility] Mean Bld Glu Estim. 344 mg/dL LAB CHEMISTRY METHOD 06/26/2025 1:44 PM [facility] Blood Venous blood specimen / Unknown Venipuncture / Unknown 06/26/2025 9:02 AM EDT 06/26/2025 10:12 AM EDT Liliana Duke MD LAB BLOOD ORDERABLES Final Resul t [facility] [address] [place] [address], * (ABNORMAL) Basic metabolic panel (06/26/2025 9:02 AM EDT) [facility] Sodium 137 133 - 145 mmol/L LAB CHEMISTRY METHOD 06/26/2025 11:39 AM [facility] Potassium 4.4 3.5 - 5.5 mmol/L LAB CHEMISTRY METHOD 06/26/2025 11:39 AM [facility] Chloride 103 96 - 110 mmol/L LAB CHEMISTRY METHOD 06/26/2025 11:39 AM [facility] CO2 27 21 - 32 mmol/L LAB CHEMISTRY METHOD 06/26/2025 11:39 AM [facility] Anion Gap 7 3 - 11 LAB CHEMISTRY METHOD 06/26/2025 11:39 AM [facility] Glucose 230(H) 70 - 100 mg/dL LAB CHEMISTRY METHOD 06/26/2025 11:39 AM [facility] BUN 11 5 - 25 mg/dL LAB CHEMISTRY METHOD 06/26/2025 11:39 AM [facility] Creatinine 0.60 0.50 - 1.10 mg/dL LAB CHEMISTRY METHOD 06/26/2025 11:39 AM [facility] eGFR 99 >=60 mL/min/1. 73m2 LAB CHEMISTRY METHOD 06/26/2025 11:39 AM EDT [facility] Comment:Calculation based on the Chronic Kidney Disease Epidemiology Collaboration (CKD-EPI) equation refit without adjustment for race. BUN/Creatinine Ratio 18.3 LAB CHEMISTRY METHOD 06/26/2025 11:39 AM EDT [facility] Calcium 8.9 8.5 - 10.5 mg/dL LAB CHEMISTRY METHOD 06/26/2025 11:39 AM EDT [facility] Blood Venous blood specimen / Unknown Venipuncture / Unknown 06/26/2025 9:02 AM EDT 06/26/2025 10:12 AM EDT us Liliana Duke MD LAB BLOOD ORDERABLES Final Resul t [facility] [address] [place] [address], from Last 3 Months or Most Recently Relevant to Health Maintenance Insurance MEDICARE [employer] Care Teams Mutton Puncher Relationship Specialty Start Date End Date Tracey-Adrianna Tyler MD PCP - General 11/22/06
== END 2025-10-02 10:34 | disposition home or self-care (01) ==
LOC: HO.HOSX 10:33
PROVIDERS: Visit Provider Physician Assistant
DX: M25.552 Pain in left hip (principal); Z96.642 Presence of left artificial hip joint
CPT/HCPCS: 73502